=== PATIENT | female | born 2000 | race Caucasian/White ===

== ENCOUNTER 2022-05-25 22:26 | Inpatient (IN) ==
[2022-05-25] MEDS ORDERED: OXYTOCIN 30 UNITS/500 ML BAG IV PRN ×2 (23:09→23:42)
[2022-05-25] MEDS ORDERED: LACTATED RINGER'S 1,000 ML IV PRN (23:09)
--- NOTE | 2022-05-25 23:22 | History & Physical Report ---
Date of Service May 25, 2022 Assessment & Plan (1) SROM (spontaneous rupture of membranes): Plan: 22 y/o G1 at 37 4/7 wga presents with SROM VSS Fetus cat 1 SROM - bill spontaneously, manage expectantly. Discussed pit if indicated and pt amenable if needed GBS neg Epidural PRN Admission and Anticipated Discharge Date Admission Date: May 25, 2022 History of Present Illness Chief Complaint: LOF Primary Care Provider: Sven Obrien 22 y/o G1 at 37 4/7 wga presents w/ LOF. Had an episode where it felt like she peed herself around 930pm and just kept going, has continued leaking since then. Contractions began at that time too, denies VB. 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, but structurally Past [employer] Hx: G1 denies hx STIs never had a pap Allergies Allergy/AdvReac Type Severity Reaction Status Date / Time diphenhydramine AdvReac Intermediate makes her Verified 05/24/22 11:16 [From Benadryl] lungs tingle ibuprofen AdvReac Intermediate INTENSIFIES Verified 05/24/22 11:16 HEADACHES Home Medications Medication Instructions Recorded Confirmed Type prenat.vits,fredrick,jfq-kusn-sovab 1 tab PO QAM 11/12/21 05/25/22 History Patient History Medical History Migraine without aura Surgical History No pertinent past surgical history Family History Grandmother (Paternal) Pancreatic cancer Hypertension Unknown Afib Paternal great grandmother Unknown Acute leukemia Paternal Great Grandfather Denies family history of Ovarian cancer Prostate cancer Diabetes Heart disease Breast cancer Colorectal cancer Social History Smoking Status: Never smoker Second Hand Exposure: Yes; Hx Alcohol Use: No Hx Substance Use: No Preferred Language: Ukrainian Communication Ability: Effective Hearing Ability: Normal Field Identification Specialist Required: No Beliefs That Will Affect Care: None marital status: Single marital status details: RJ Katz (25) [phone] Current Living Situation: Parent Current Living Situation Comment: parents current occupational status: unemployed How many Children do You have: 0 Other Information That Helps Us Care for You: No Feels Safe at Home: Yes Safety Concerns: Feels Safe At This Time caffeine: Yes Dental Care, Regularly: Yes Physical Activity Frequency: 3-4 Times per Week Seatbelt Use: always Sunscreen Use: Yes Assistive Devices: Glasses Physical Exam Genitourinary: OB Exam Abdomen: + estimated weight (6-7) OB Exam Monitor Tracing: + external FHT monitor used, + external uterine monitor used (q5-6) and + category I (125/mod/+accel/-decel) Grossly ruptured and SVE 3- 4/100/0 by nursing Results & Data ([facility]) Vital Signs (Past 12 Hours) Vital Signs Temp Pulse Resp BP 05/25/22 22:49 98.2 F 93 H 18 117/73 05/25/22 22:43 98.2 F 93 H 18 117/73 Laboratory Results OB Labs: Blood Type O Positive 11/16/21 Antibody Screen NEGATIVE 11/16/21 Hemoglobin 11.8 g/dL (12.0-16.0) L 03/22/22 Hematocrit 35.5 % (37-47) L 03/22/22 Mean Corpuscular Volume 88.2 fL (80-100) 03/07/22 Platelet Count 206 K/uL (130-400) 03/07/22 Rubella IgG Antibody Non Immune (Immune) L 11/16/21 Rapid Plasma Reagin Nonreactive (Nonreactive) 11/16/21 Hepatitis B Surface Antigen Neg (Neg) 11/16/21 Hepatitis C Antibody Neg (Neg) 11/16/21 HIV (1&2) Ab and P24 Ag, 4th Gener Neg (Neg) 11/16/21 Glucose 1 Hour 50 gm Load 115 mg/dl (70-130) 03/22/22 OB Optional Labs: Chlamydia trachomatis RNA NOT DETECTED (NOT DETECTED) 11/16/21 Neisseria gonorrhoeae RNA NOT DETECTED (NOT DETECTED) 11/16/21 Labs Reviewed: Declines csf/sma-mln cfdna-low risk--mln declines msafp--mln GBS neg Diagnostic Findings post plac Coding Level of Care Code None Diagnoses SROM (spontaneous rupture of membranes)
[2022-05-25 23:39] LABS: Hematocrit (blood only) 36.9 % (34.1-44.9); Hemoglobin 12.8 g/dl (12.0-16.0); Mean Corpuscular Hemoglobin 30.3 pg (25.0-34.0); Mean Corpuscular Hgb Conc 34.7 g/dL (32.0-36.0); Mean Corpuscular Volume 87.4 fL (80.0-100.0); Mean Platelet Volume 10.5 fL (9.4-12.3); Platelet Count 183 K/uL (130-400); RDW Coefficient of Variation 13.2 % (11.5-14.5); RDW Standard Deviation 42.5 fL (36.4-46.3); Red Blood Count 4.22 M/uL (3.93-5.22); White Blood Count 11.84 K/ul (4.8-10.8)
[2022-05-26] MEDS ORDERED: SODIUM CHLORIDE 0.9% INJ 10 ML VIAL ONE (00:06)
[2022-05-26] MEDS ORDERED: fentaNYL citrate 100 MCG/2 ML VIAL ONE (00:06)
[2022-05-26] MEDS ORDERED: ePHEDrine sulfate 50 MG/ML AMP ONE (00:06)
[2022-05-26] MEDS ORDERED: LIDOCAINE 2%/EPINEPHRINE 1:200,000 20 ML SDV ONE (00:07)
[2022-05-26] MEDS ORDERED: BUPIVACAINE 0.25% 30 ML VIAL ONE (00:07)
[2022-05-26] MEDS ORDERED: fentaNYL 2MCG/ML ROPIVACAINE 1.25MG/ML 100 ML BAG EPI ONE (00:07)
[2022-05-26] MEDS ORDERED: NALOXONE HCL 1 MG in SODIUM CHLORIDE 0.9% 1000ML 1,000 ML IV PRN (00:45)
[2022-05-26] MEDS ORDERED: fentaNYL 2MCG/ML ROPIVACAINE 1.25MG/ML 100 ML BAG EPI PRN (00:45)
[2022-05-26] MEDS ORDERED: NALBUPHINE HCL INJ 10 MG/ML AMP IV PRN (00:45)
[2022-05-26] MEDS ORDERED: ONDANSETRON INJ 2 MG/ML 2 ML VIAL IV PRN (00:45)
[2022-05-26] MEDS ORDERED: diphenhydrAMINE 50 MG/ML VIAL IV PRN (00:45)
[2022-05-26] MEDS ORDERED: NALOXONE HCL 0.4 MG/1 ML VIAL/CARP IV PRN (00:45)
[2022-05-26] MEDS ORDERED: ePHEDrine sulfate 50 MG/ML AMP IV PRN (00:45)
--- NOTE | 2022-05-26 00:45 | Anesthesiology Consultation ---
Date of Service May 26, 2022 Assessment & Plan Chart Review Chart Review: Patient NOT seen in Pre Admission Testing and Acceptable Risk for Labor Epidural Consults Requested none ASA ASA2 Proposed Anesthesia Anesthesia Type: Labor Epidural Risk / Benefits Reviewed With: PT / POA / Parent / Guardian, Accepts Plan and Informed Consent Obtained History Height/Weight Height: 5 ft 7 in Weight: 69.853 kg Allergies Allergy/AdvReac Type Severity Reaction Status Date / Time diphenhydramine AdvReac Intermediate makes her Verified 05/24/22 11:16 [From Benadryl] lungs tingle ibuprofen AdvReac Intermediate INTENSIFIES Verified 05/24/22 11:16 HEADACHES Medications Home Medications Medication Instructions Recorded Confirmed Last Taken prenat.vits,fredrick,lux-ublj-oczwq 1 tab PO QAM 11/12/21 05/25/22 05/25/22 Active Medications Generic Name Dose Route Start Last Admin Trade Name Freq PRN Reason Stop Dose Admin Lactated Ringer's 1,000 mls @ 125 mls/hr 05/25/22 23:09 05/26/22 00:40 Lr IV 05/27/22 23:08 125 mls/hr .Q8H PRN Infusion L&D Protocol Protocol Past Medical History Medical History Migraine without aura Exercise / Class Metabolic Activity II 4-5 Yardwork/Stairs/Walk up hill Past Family History Family History Grandmother (Paternal) Pancreatic cancer Hypertension Unknown Afib Paternal great grandmother Unknown Acute leukemia Paternal Great Grandfather Denies family history of Ovarian cancer Prostate cancer Diabetes Heart disease Breast cancer Colorectal cancer Past Surgical History Surgical History No pertinent past surgical history Past Anesthesia History No Hx of Anesthesia Complications and No Family Hx of Anesthesia Complications History of PONV No Hx of PONV and No Hx of Motion Sickness Social History Smoking Status: Never smoker Hx Alcohol Use: No Hx Substance Use: No substance use type: does not use Physical Exam Vital Signs Last Vital Signs Temp 36.8 C 05/25/22 22:49 Pulse 102 H 05/26/22 00:42 Resp 18 05/25/22 22:49 BP 126/81 05/26/22 00:42 Pulse Ox 97 05/26/22 00:42 ENMT Mouth: no dentition abnormality Thyromental Distance: > or= 3.5 Finger Breadths Mallampati Class: II Neck normal visual inspection Respiratory normal respiratory effort Auscultation: lungs clear to auscultation bilaterally Cardiovascular Rate/Rhythm: regular rate and regular rhythm Psychiatric Orientation: alert Testing Laboratory Results 05/25/22 23:23
--- NOTE | 2022-05-26 03:12 | Delivery Summary ---
Vaginal Delivery Summary Date of Service May 26, 2022 Vaginal Delivery Summary [facility] PREOPERATIVE DIAGNOSIS: 1. Single intrauterine at 37 5/7 wga 2. SROM 3. Labor 4. Rubella nonimmune POSTOPERATIVE DIAGNOSIS: 1. Single intrauterine at 37 5/7 wga 2. SROM 3. Labor 4. Rubella nonimmune 5. Delivered PROCEDURE: 1. Normal spontaneous vaginal delivery. SURGEON: Gaby Washington MD ANESTHESIA: Epidural. ESTIMATED BLOOD LOSS: 200 mL FLUIDS: Continuous LR. URINE OUTPUT: None. COMPLICATIONS: None. CONDITION: Stable. INDICATIONS: 22 y/o G1 at 37 5/7 wga presented last evening with SROM. She was found to be 3cm on arrival. She received an epidural for pain control and progressed spontaneously to complete and desired to push. FINDINGS: A viable female infant, weight pending with Apgars of 8 and 9 at 1 and 5 minutes respectively. SPECIMEN: Cord blood OPERATIVE REPORT: The patient progressed to 10 cm, 100% effaced and +2 station, pushed over intact perineum with anesthesia to deliver a viable female infant, weight and Apgars as above. Head of delivered in APOLINAR position. No nuchal cord was present. Body and shoulders were delivered without difficulty. was delivered to maternal abdomen and nursing staff. Delayed cord clamping was performed for 60 seconds. Cord was clamped and cut. Cord blood was obtained. Placenta delivered spontaneously intact with 3-vessel cord. IV oxytocin and fundal massage were given for excellent hemostasis. Vagina, cervix, perineum, and placenta were inspected. A few hemostatic abrasions in the vagina, on the right labia and adjacent to clitoris were noted and not needed to be repaired. There was good hemostasis. Sponge and needle counts correct x2. No sponges were left behind. Mother and stable in immediate period. [facility] [place] Vaginal Delivery Codes: 63065 global code for the antepartum, delivery, and post- Delivery Type Details: [facility]
[2022-05-26] MEDS ORDERED: IBUPROFEN 600 MG TAB PO PRN (03:20)
[2022-05-26] MEDS ORDERED: HYDROCORTISONE ACETATE 25 MG SUPP PR PRN (03:20)
[2022-05-26] MEDS ORDERED: OXYTOCIN 30 UNITS/500 ML BAG IV PRN (03:20)
[2022-05-26] MEDS ORDERED: DIPHTHERIA/TETANUS/PERTUSSIS 0.5 ML SYR/VIAL IM ONE (03:20)
[2022-05-26] MEDS ORDERED: BENZOCAINE 20% AER SPR 82.5 GM CAN EXT PRN (03:20)
[2022-05-26] MEDS ORDERED: MEASLES, MUMPS & RUBELLA VIRUS VIAL SQ ONE (03:20)
[2022-05-26] MEDS: PRENATAL VITAMIN 1 TAB PO SCH (07:53)
[2022-05-26] MEDS: DOCUSATE SODIUM 100 MG CAP PO SCH ×2 (07:53→20:16)
--- NOTE | 2022-05-26 08:39 | Anesthesia Procedure Note ---
Date of Service May 26, 2022 Anesthesia Post Epidural Note Vital Signs Vital Signs: Temp Pulse Resp BP Pulse Ox O2 Del Method 97.7 F 73 18 118/66 98 05/26/22 05:20 05/26/22 05:20 05/26/22 05:20 05/26/22 05:20 05/26/22 05:20 05/26/22 05:20 Notes Mental Status: alert / awake / arousable and participated in evaluation Nausea / Vomiting: adequately controlled Pain: adequately controlled Airway Patency, RR, SpO2: stable & adequate BP & HR: stable & adequate Hydration State: stable & adequate Neuraxial Anesthesia: was administered and sensory block is resolving Anesthetic Complications: no major complications apparent and Pt Satisfied with anesthetic care Epidural: Removed without complications and With tip intact
[2022-05-26] MEDS: ACETAMINOPHEN 325 MG TAB PO PRN (20:16)
--- NOTE | 2022-05-27 07:11 | Obstetrical Progress Note ---
Date of Service May 27, 2022 Assessment & Plan (1) Encounter for care and examination after delivery: 22 yo PP1 from , doing well -Meeting all pp milestones -O+/rubella nonimmune/, mmr ordered -f/u 6 weeks for appt, desires d/c today and stable to do so Subjective Ambulation: ambulating normally Voiding: no voiding problems Passing Gas:: Yes Diet Tolerance:: regular diet Lochia:: Small Feeding Type:: bottle feeding (trying to pump) Pain well managed with medication, cannot take ibuprofen so just taking tylenol Review of Systems Denies fevers, chills, n/v, [place], CP, SOB Physical Exam Constitutional WD/WN, vitals as above no acute distress Respiratory normal respiratory effort, lungs clear to auscultation Cardiovascular RRR, no murmur, no edema Gastrointestinal (Abdomen) Percussion/Palpation: abdomen soft; abdomen nontender fundus firm 1cm below umbilicus and NT Musculoskeletal BLE symmetric, nonerythematous, nontender Results & Data ([facility]) Vital Signs (Past 12 Hours) Vital Signs Temp Pulse Resp BP Pulse Ox O2 Del Method 05/27/22 04:00 97.7 F 69 18 107/72 96 Room Air 05/27/22 00:10 97.7 F 80 16 98/63 L 96 Room Air 05/26/22 20:00 97.9 F 89 16 96/61 L 98 Room Air
[2022-05-27] MEDS: PRENATAL VITAMIN 1 TAB PO SCH (07:14)
[2022-05-27] MEDS: ACETAMINOPHEN 325 MG TAB PO PRN (07:14)
[2022-05-27] MEDS: DOCUSATE SODIUM 100 MG CAP PO SCH (07:14)
[2022-05-27] MEDS ORDERED: bisacodyL 5 MG TABEC PO SCH (20:00)
[2022-05-28] MEDS ORDERED: bisacodyL 10 MG SUPP PR PRN (03:20)
== END 2022-05-27 12:00 | disposition home or self-care (01) | DRG 807 ==
LOC: OPB 22:26 → 4S1 22:28 → 4E2 05-26 05:30

== ENCOUNTER 2022-06-08 19:06 | Observation (INO) ==
[2022-06-08] MEDS ORDERED: SODIUM CHLORIDE 0.9% 1000ML 1,000 ML IV ONE ×2 (19:46→20:13)
[2022-06-08 19:59] LABS: Basophils # (auto) 0.05 K/uL (0-0.2); Basophils % (auto) 0.3 %; Eosinophils # (auto) 0.04 K/uL (0-0.50); Eosinophils % (auto) 0.3 %; Hematocrit (blood only) 42.5 % (34.1-44.9); Hemoglobin 14.4 g/dl (12.0-16.0); Immature Granulocytes # (auto) 0.05 K/uL (0.00-0.02); Immature Granulocytes % (auto) 0.3 %; Lymphocytes % (auto) 11.3 %; Mean Corpuscular Hemoglobin 29.5 pg (25.0-34.0); Mean Corpuscular Hgb Conc 33.9 g/dL (32.0-36.0); Mean Corpuscular Volume 87.1 fL (80.0-100.0); Mean Platelet Volume 9.5 fL (9.4-12.3); Monocytes # (auto) 1.19 K/uL (0.24-0.82); Monocytes % (auto) 7.5 %; Neutrophils # (auto) 12.82 K/uL (1.4-6.5); Neutrophils % (auto) 80.3 %; Platelet Count 287 K/uL (130-400); RDW Coefficient of Variation 12.1 % (11.5-14.5); RDW Standard Deviation 38.9 fL (36.4-46.3); Red Blood Count 4.88 M/uL (3.93-5.22); White Blood Count 15.95 K/ul (4.8-10.8)
[2022-06-08] MEDS ORDERED: ACETAMINOPHEN 1000 MG/100 ML IV IV STA (20:07)
[2022-06-08] MEDS ORDERED: GENTAMICIN CONSULT ACTIVE PRN ×2 (20:11→21:13)
[2022-06-08] MEDS ORDERED: CLINDAMYCIN/D5W 900 MG/50 ML BAG IV ONE (20:11)
[2022-06-08] MEDS ORDERED: GENTAMICIN SULFATE 320 MG in DEXTROSE 5% 100 ML IV STA (20:11)
[2022-06-08 20:17] LABS: Albumin Globulin Ratio 1.4 (0.9-2); Albumin Level 3.8 gm/dl (3.4-5.0); BUN Creatinine Ratio 20.5 (10-20); Bilirubin,Total 0.6 mg/dl (0.2-1.0); Creatinine Clr Calc Pharmacy 123.6 ml/min; Est GFR (African American) 137.4 ml/min; Est GFR (Non-African American) 118.6 ml/min; Globulin 2.7 gm/dl (2.5-4.0); Potassium 3.5 mmol/L (3.5-5.1); Total Protein 6.5 gm/dl (6.0-8.3)
--- NOTE | 2022-06-08 20:29 | Emergency Department Note ---
History of Present Illness General Chief complaint: Headache Stated complaint: ACHES, CHILLS, HEADACHE Time Seen by Provider: 06/08/22 19:45 History of Present Illness Maximum Pain Intensity: 9 22-year-old female presents to the ED with a chief complaint of body aches, chills and a headache. She states that her symptoms started about an hour prior to arrival. Denies a cough or sore throat. No sick contacts. Status post spontaneous vaginal delivery about 2 weeks ago. Complains of some suprapubic and lower abdominal quadrant tenderness. She continues having some vaginal bleeding that is similar to a period. She also has an occasional cramps. She did report some burning with urination as well. She thinks that is from using a pad for her bleeding. She has not taken any medication for her symptoms. Home Medications Medication Instructions Recorded Confirmed Type prenat.vits,fredrick,[id number]-[id number]-rpaff 1 tab PO QAM 11/12/21 06/08/22 History acetaminophen 325 mg tablet 650 mg PO Q6H PRN Pain 06/08/22 06/08/22 History sertraline 25 mg tablet 25 mg PO DAILY 06/08/22 06/08/22 History Allergies Allergy/AdvReac Type Severity Reaction Status Date / Time diphenhydramine AdvReac Intermediate makes her Verified 06/08/22 20:28 [From Benadryl] lungs tingle ibuprofen AdvReac Intermediate INTENSIFIES Verified 06/08/22 20:28 HEADACHES Past Med/Surg History Medical History Migraine without aura Surgical History No pertinent past surgical history Family History Grandmother (Paternal) Pancreatic cancer Hypertension Unknown Afib Paternal great grandmother Unknown Acute leukemia Paternal Great Grandfather Denies family history of Ovarian cancer Prostate cancer Diabetes Heart disease Breast cancer Colorectal cancer Social History Smoking Status: Never smoker Second Hand Exposure: Yes; Hx Alcohol Use: No Hx Substance Use: No Preferred Language: French Communication Ability: Effective Hearing Ability: Normal Air Traffic Control Specialist Required: No Beliefs That Will Affect Care: None marital status: Single marital status details: RJ Katz (25) [phone] Current Living Situation: Parent Current Living Situation Comment: parents current occupational status: unemployed How many Children do You have: 0 Feels Safe at Home: Yes caffeine: Yes Dental Care, Regularly: Yes Physical Activity Frequency: 3-4 Times per Week Seatbelt Use: always Sunscreen Use: Yes Assistive Devices: Glasses Review of Systems A total of 10 systems reviewed and were otherwise negative Physical Exam Vital Signs Vital Signs - 24 hr 06/08/22 19:11 06/08/22 20:37 06/08/22 21:20 Temperature 38.9 C H 38.8 C H Temperature Source Temporal Artery Scan Oral Pulse Rate 138 H Pulse Rate [Apical] 104 H 86 Respiratory Rate 20 23 24 Respiratory Effort / Characteristics Non-Labored Non-Labored Respiratory Depth Normal Normal Respiratory Pattern Regular Regular Blood Pressure 98/59 L Blood Pressure [Right Arm] 104/63 Blood Pressure Mean 72 Blood Pressure Mean [Right Arm] 76 Blood Pressure Position [Right Arm] Lying Pulse Oximetry 97 96 96 Oxygen Delivery Method Room Air Room Air Room Air Sepsis Recent Fever Within 48 Hours Yes Sepsis New/Unexplained Change in Mental Status N/A Sepsis Action Taken by Nursing No Action Required 06/08/22 21:27 Temperature 37.4 C Temperature Source Oral Pulse Rate Pulse Rate [Apical] 83 Respiratory Rate 20 Respiratory Effort / Characteristics Respiratory Depth Respiratory Pattern Blood Pressure Blood Pressure [Right Arm] 106/62 Blood Pressure Mean Blood Pressure Mean [Right Arm] 76 Blood Pressure Position [Right Arm] Pulse Oximetry 97 Oxygen Delivery Method Room Air Sepsis Recent Fever Within 48 Hours Sepsis New/Unexplained Change in Mental Status Sepsis Action Taken by Nursing CONSTITUTIONAL/VITAL SIGNS: Reviewed / noted above. GENERAL: Non-toxic in appearance. INTEGUMENTARY: Warm, dry, and [place]. HEAD: Normocephalic. EYES: without scleral icterus or trauma. ENT/OROPHARYNX: clear and moist. LYMPHADENOPATHY/NECK: Is supple without lymphadenopathy or meningismus. RESPIRATORY: Clear to auscultation bilaterally. No increased work of breathing. CARDIOVASCULAR: Tachycardic rate and regular rhythm. GI/ABDOMEN: Soft and significantly tender in the suprapubic area and lower quadrants. No organomegaly or pulsatile mass. EXTREMITIES: Warm and well perfused. BACK: Mild left-sided CVA tenderness. NEUROLOGICAL: Intact without focal deficits. PSYCHIATRIC: normal affect. MUSCULOSKELETAL: Normally developed with good muscle tone. TRIAGE NURSING DOCUMENTATION REVIEWED. Course Administered Medications Discontinued Medications Acetaminophen (Acetaminophen 1000 Mg/100 Ml Iv) 1,000 mg IV NOW STA Stop: 06/08/22 20:08 Last Admin: 06/08/22 20:31 Dose: 1,000 mg Documented By: HILARIA Sodium Chloride (Nss 1000ml) 1,000 mls @ 999 mls/hr IV .Q1H1M ONE Stop: 06/08/22 20:46 Last Infusion: 06/08/22 21:54 Dose: 0 mls/hr Documented By: Admin: 06/08/22 20:31 Dose: 999 mls/hr Documented By: HILARIA Clindamycin Phosphate (Cleocin/D5w) 900 mg in 50 mls @ 100 mls/hr IV NOW ONE Stop: 06/08/22 20:40 Last Admin: 06/08/22 21:51 Dose: 100 mls/hr Documented By: CK Ioversol (Optiray 300 100ml) 93 ml IV ONCE ONE Stop: 06/08/22 21:03 Last Admin: 06/08/22 21:02 Dose: 93 ml Documented By: MANUEL Medical Decision Making Differential Diagnosis Differential includes viral illness, influenza, meningitis, pneumonia, sin usitis, UTI, pyelonephritis, endometritis, appendicitis, diverticulitis, other. Medical Records Attestation: I reviewed the patient's medical records. Home Medications Current Medication List: was personally reviewed by me Laboratory Data Attestation: I reviewed the patient's lab results. Result diagrams: 06/08/22 19:40 06/08/22 19:40 Lab Results 06/08/22 06/08/22 06/08/22 Range/Units 19:35 19:40 19:40 WBC 15.95 H (4.8-10.8) K/ul RBC 4.88 (3.93-5.22) M/uL Hgb 14.4 (12.0-16.0) g/dl Hct 42.5 (34.1-44.9) % MCV 87.1 (80.0-100.0) fL MCH 29.5 (25.0-34.0) pg MCHC 33.9 (32.0-36.0) g/dL RDW Std Deviation 38.9 (36.4-46.3) fL RDW Coeff of Tomás 12.1 (11.5-14.5) % Plt Count 287 (130-400) K/uL MPV 9.5 (9.4-12.3) fL Immature Gran % (Auto) 0.3 % Neut % (Auto) 80.3 % Lymph % (Auto) 11.3 % Carroll % (Auto) 7.5 % Eos % (Auto) 0.3 % Baso % (Auto) 0.3 % Neut # (Auto) 12.82 H (1.4-6.5) K/uL Lymph # (Auto) 1.80 (1.2-3.4) K/uL [place] # (Auto) 1.19 H (0.24-0.82) K/uL Eos # (Auto) 0.04 (0-0.50) K/uL Baso # (Auto) 0.05 (0-0.2) K/uL Immature Gran # (Auto) 0.05 H (0.00-0.02) K/uL Sodium 136 (136-145) mmol/L Potassium 3.5 (3.5-5.1) mmol/L Chloride 105 (98-107) mmol/L Carbon Dioxide 23 (21-32) mmol/L Anion Gap 8 (3-11) BUN 15 (6-23) mg/dl Creatinine 0.73 (0.6-1.2) mg/dl Est Cr Clr Drug Dosing 123.6 ml/min Est GFR ( Amer) 137.4 ml/min Est GFR (Non-Af Amer) 118.6 ml/min BUN/Creatinine Ratio 20.5 H (10-20) Glucose 101 H (70-99(Fasting)) mg/dl Lactate (0.4-2.0) mmol/L Calcium 9.0 (8.5-10.1) mg/dl Total Bilirubin 0.6 (0.2-1.0) mg/dl AST 15 (13-39) U/L ALT 17 (7-52) U/L Alkaline Phosphatase 108 H (34-104) U/L Total Protein 6.5 (6.0-8.3) gm/dl Albumin 3.8 (3.4-5.0) gm/dl Globulin 2.7 (2.5-4.0) gm/dl Albumin/Globulin Ratio 1.4 (0.9-2) Procalcitonin (0-0.5) ng/ml Urine Color Urine Appearance (Clear) Urine pH (4.5-7.5) Ur Specific [place] (1.000-1.030) Urine Protein (Negative) Urine Glucose (UA) (Negative) Urine Ketones (Negative) Urine Blood (Negative) Urine Nitrite (Negative) Urine Bilirubin (Negative) Urine Urobilinogen (Negative) Ur Leukocyte Esterase (Negative) Urine WBC (Auto) (0-5) /hpf Urine RBC (Auto) (0-4) /hpf U Hyaline Cast (Auto) (0-5) /lpf U Epithel Cells (Auto) (0-5) /lpf Urine Bacteria (Auto) (Negative) SARS-CoV-2 (PCR) NEGATIVE (Negative) Influenza Type A (PCR) Negative (Neg) Influenza Type B (PCR) Negative (Neg) RSV (RT-PCR) Negative (Neg) 06/08/22 06/08/22 06/08/22 Range/Units 19:40 20:25 20:30 WBC (4.8-10.8) K/ul RBC (3.93-5.22) M/uL Hgb (12.0-16.0) g/dl Hct (34.1-44.9) % MCV (80.0-100.0) fL MCH (25.0-34.0) pg MCHC (32.0-36.0) g/dL RDW Std Deviation (36.4-46.3) fL RDW Coeff of Tomás (11.5-14.5) % Plt Count (130-400) K/uL MPV (9.4-12.3) fL Immature Gran % (Auto) % Neut % (Auto) % Lymph % (Auto) % [place] % (Auto) % Eos % (Auto) % Baso % (Auto) % Neut # (Auto) (1.4-6.5) K/uL Lymph # (Auto) (1.2-3.4) K/uL [place] # (Auto) (0.24-0.82) K/uL Eos # (Auto) (0-0.50) K/uL Baso # (Auto) (0-0.2) K/uL Immature Gran # (Auto) (0.00-0.02) K/uL Sodium (136-145) mmol/L Potassium (3.5-5.1) mmol/L Chloride (98-107) mmol/L Carbon Dioxide (21-32) mmol/L Anion Gap (3-11) BUN (6-23) mg/dl Creatinine (0.6-1.2) mg/dl Est Cr Clr Drug Dosing ml/min Est GFR ( Amer) ml/min Est GFR (Non-Af Amer) ml/min BUN/Creatinine Ratio (10-20) Glucose (70-99(Fasting)) mg/dl Lactate 0.5 (0.4-2.0) mmol/L Calcium (8.5-10.1) mg/dl Total Bilirubin (0.2-1.0) mg/dl AST (13-39) U/L ALT (7-52) U/L Alkaline Phosphatase (34-104) U/L Total Protein (6.0-8.3) gm/dl Albumin (3.4-5.0) gm/dl Globulin (2.5-4.0) gm/dl Albumin/Globulin Ratio (0.9-2) Procalcitonin < 0.05 (0-0.5) ng/ml Urine Color Yellow Urine Appearance Clear (Clear) Urine pH 7.0 (4.5-7.5) Ur Specific [place] 1.018 (1.000-1.030) Urine Protein Negative (Negative) Urine Glucose (UA) Negative (Negative) Urine Ketones Negative (Negative) Urine Blood Negative (Negative) Urine Nitrite Negative (Negative) Urine Bilirubin Negative (Negative) Urine Urobilinogen Negative (Negative) Ur Leukocyte Esterase 3+ H (Negative) Urine WBC (Auto) 10-30 H (0-5) /hpf Urine RBC (Auto) 0-4 (0-4) /hpf U Hyaline Cast (Auto) 1-5 (0-5) /lpf U Epithel Cells (Auto) 10-20 H (0-5) /lpf Urine Bacteria (Auto) Negative (Negative) SARS-CoV-2 (PCR) (Negative) Influenza Type A (PCR) (Neg) Influenza Type B (PCR) (Neg) RSV (RT-PCR) (Neg) Imaging Data My Impression: Chest x-ray: Per my interpretation there is no acute disease. No pneumothorax or pneumonia. ECG Data Attestation: I personally reviewed and interpreted this ECG as follows: Additional Comments: Twelve-lead EKG: Per my interpretation shows normal sinus rhythm at a rate of 81. No ST elevation. No PVCs. Normal QTC MDM Narrative 22-year-old female presents with body aches and chills as well as a headache and abdominal pain in the setting of postdelivery 2 weeks ago. Exam reveals tenderness in the suprapubic area. She is febrile and tachycardic. Her blood pressure was 98/59. Symptoms are concerning for endometritis. Her white blood cell count was elevated at 15.95. Chemistry panel was unremarkable. Urine did not show infection. COVID test was negative. EKG shows a normal sinus rhythm. CT scan has been performed. Results are pending. Clinically I feel the patient has endometritis. She was treated with empiric antibiotics in the form of clindamycin and gentamicin IV. She was also given some IV Tylenol and some IV fluids. Her tachycardia improved. Her fever resolved. She was seen by Dr. Josue for further evaluation and care. Impression & Plan endometritis Discharge Plan Visit Data Chief Complaint: Headache Stated Complaint: ACHES, CHILLS, HEADACHE ED Provider: Anton Kelly Discharge Problem: endometritis Patient Disposition: Being Evaluated by Surgeon Discharge Instructions Interventions: ED Discharge Assessment Last Done: 06/08/22 22:09 Forms Stand Alone Forms: My [facility] Prescriptions Prescriptions: No Action prenat.vits,fredrick,nve-eyeq-onygb Tablet 1 tab PO QAM sertraline 25 mg tablet 25 mg PO DAILY acetaminophen 325 mg tablet 650 mg PO Q6H PRN (Reason: Pain) Referrals Referrals: Sven Obrien [email or web address] [Primary Care Provider] -
[2022-06-08 20:41] LABS: Influenza A virus by PCR Negative (Neg); Influenza B virus by PCR Negative (Neg); RSV by PCR Negative (Neg); SARS CoV2 RNA(COVID-19) InHosp NEGATIVE (Negative)
[2022-06-08 20:59] LABS: Appearance Urine Clear (Clear); Bacteria Urine Automated Negative (Negative); Bilirubin Urine Negative (Negative); Blood Urine Negative (Negative); Color Urine Yellow; Glucose Urine UA Negative (Negative); Ketones Urine Negative (Negative); Leukocyte Esterase Urine 3+ (Negative); Nitrite Urine Negative (Negative); Protein Urine Negative (Negative); RBC Urine Automated 0-4 /hpf (0-4); Specific Gravity Urine 1.018 (1.000-1.030); Urobilinogen Urine Negative (Negative)
[2022-06-08] MEDS ORDERED: OPTIRAY 300 100mL IV ONE (21:02)
[2022-06-08] MEDS ORDERED: ONDANSETRON INJ 2 MG/ML 2 ML VIAL IV PRN (21:13)
[2022-06-08] MEDS ORDERED: ACETAMINOPHEN 325 MG TAB PO PRN (21:13)
[2022-06-08] MEDS ORDERED: IBUPROFEN 600 MG TAB PO PRN (21:13)
--- NOTE | 2022-06-08 21:19 | History & Physical Report ---
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 COVID and other respiratory virus testing is negative. Given tachycardia, very elevated temperature and mildly low blood pressure, do not think outpatient oral therapy is appropriate at this time and think she needs inpatient monitoring of her situation and IV therapy. Blood culture and urine culture pending. Plan clinda/gent as was GBS negative. If symptoms do not improve or continued fever, would plan to add ampicillin. await results of CT scan. Explained the situation to the patient and her significant other who express understanding. Plan IV thearpy until at least 24 hours afebrile and then will transition to oral therapy for a continued 10-14 days. History of Present Illness Chief Complaint: fever and feeling poorly Primary Care Provider: Sven Obrien Patient is a 22yowf who presents to the Ed today for feeling poorly and fever. Patient was in her usual state of health until abouty 6pm this evening w hen she started experiencing fever and chills , felt really poorly. Took temp and it was 101. They presented to the ED for this. She has not noted a significant change in her bleeding. She denies n/v. she notes she has external irritation with voiding, but nothing deep or internal. She denies abdominal of pelvic pain. She does not note a foul smelling d/c. Patient is breast and bottle feeding. She notes her breasts are really engorged currently, but denies redness of the breasts. there are no sick contacts at home. History significant for on 05/26 at 3am. Was admitted on 05/25 at 23:19 with srom (just prior to arrival) and 3cm and progressed spontaneously in labor. Delivery and in hospital were uncomplicated. course was uncomplicated. she was GBS negative. she presented to the ED on PPD 6 for increased bleeding. She was afebrile, her wbc was 9.2. US showed a postgravid uterus. Endometrium was 1.2cm with minimal complex fluid, it was not distended by blood, clot and no POCS were suspected. She was reassured and sent home. Her temp on arrival was 38.9, repeat 38.8, pulse on admission 138 but now 86. INitial BP pressure a little on the low side with first bp 98/59 and repeat 104/63 and then 106/62. CXR appears wnl per my review--reading pending. CT scan pending. blood cultures pending. UA shows 10-30 wbc, +LE, bacteria negative. 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 Allergies Allergy/AdvReac Type Severity Reaction Status Date / Time diphenhydramine AdvReac Intermediate makes her Verified 06/08/22 20:28 [From Benadryl] lungs tingle ibuprofen AdvReac Intermediate INTENSIFIES Verified 06/08/22 20:28 HEADACHES Home Medications Medication Instructions Recorded Confirmed Type prenat.vits,fredrick,[id number] 1 tab PO QAM 11/12/21 06/08/22 History acetaminophen 325 mg tablet 650 mg PO Q6H PRN Pain 06/08/22 06/08/22 History sertraline 25 mg tablet 25 mg PO DAILY 06/08/22 06/08/22 History Patient History Medical History Migraine without aura Surgical History No pertinent past surgical history Family History Grandmother (Paternal) Pancreatic cancer Hypertension Unknown Afib Paternal great grandmother Unknown Acute leukemia Paternal Great Grandfather Denies family history of Ovarian cancer Prostate cancer Diabetes Heart disease Breast cancer Colorectal cancer Social History Smoking Status: Never smoker Second Hand Exposure: Yes; Hx Alcohol Use: No Hx Substance Use: No Preferred Language: [place]dean Communication Ability: Effective Hearing Ability: Normal Machine Grainer Required: No Beliefs That Will Affect Care: None marital status: Single marital status details: RJ Katz (25) [phone] Current Living Situation: Parent Current Living Situation Comment: parents current occupational status: unemployed How many Children do You have: 0 Feels Safe at Home: Yes caffeine: Yes Dental Care, Regularly: Yes Physical Activity Frequency: 3-4 Times per Week Seatbelt Use: always Sunscreen Use: Yes Assistive Devices: Glasses OB History see hpi Physical Exam Constitutional: WD/WN, vitals as above Neck: trachea midline, no thyromegaly Respiratory: normal respiratory effort, lungs clear to auscultation Cardiovascular: RRR, no murmur, no edema Extremities: no calf tenderness and no edema Gastrointestinal (Abdomen): soft, nd, tender to palpation of the pelvis and lower abdomen. no rebound Psychiatric: A+Ox3, euthymic affect Results & Data ([facility]) Vital Signs (Past 12 Hours) Vital Signs Temp Pulse Pulse Resp BP BP Pulse Ox 06/08/22 20:37 38.8 C H 104 H 23 104/63 96 06/08/22 19:11 38.9 C H 138 H 20 98/59 L 97 O2 Del Method 06/08/22 20:37 Room Air 06/08/22 19:11 Room Air Code Status & VTE Plan VTE Prophylaxis Plan VTE Prophylaxis will be ordered: No Coding Level of Care Code 00043 Initial Inpt Care Lvl 2 Diagnoses Vaginal delivery O80 endometritis O86.12
[2022-06-08] MEDS: LACTATED RINGER'S 1,000 ML IV SCH (23:40)
[2022-06-09] MEDS: CLINDAMYCIN/D5W 900 MG/50 ML BAG IV SCH ×3 (06:05→21:38)
--- NOTE | 2022-06-09 07:15 | CT Scan Report ---
ABDOMEN AND PELVIS CT WITH IV CONTRAST CT DOSE: 297.26 mGy.cm HISTORY: PROBABLE POST ENDOMETRITIS, LOWER ABD PAIN TECHNIQUE: Multiaxial CT images of the abdomen and pelvis were performed following the use of intrave nous contrast. A dose lowering technique was utilized adhering to the principles of ALARA. COMPARISON STUDY: None. FINDINGS: The lung bases are clear. No pneumoperitoneum. No pneumatosis. No fractures within the visu alized osseous structures. The liver, gallbladder, pancreas, spleen, and adrenal glands are unremarka ble. The main portal vein is patent. No retroperitoneal lymphadenopathy. Normal caliber abdominal aor ta. A 1 cm cyst within the upper pole of the left kidney. There is a punctate stone within the left k idney. No ureteral stones. No hydronephrosis. Mild bladder wall thickening. The uterus is mildly enla rged and heterogeneous. The endometrium measures up to 1.2 cm in thickness. Trace pelvic free fluid. This is likely physiologic. Small umbilical hernia containing fat and a knuckle of the colon. However , no bowel wall thickening or obstruction. Normal appendix. IMPRESSION: 1. Mild bladder wall thickening. This may represent a cystitis. Recommend correlation with urinalysis . 2. Mildly enlarged and heterogeneous uterus with a normal thickness endometrium for the patient's age . This likely represents the patient's history of a recent . 3. Trace pelvic free fluid which is likely physiologic. 4. No bowel wall thickening or obstruction. 5. Normal appendix. 6. Left-sided nephrolithiasis. No hydronephrosis. ACT 112: Negative or not required by law. Electronically signed by: Jerel Gonsalez M.D. 06/09/2022 7:13 AM
--- NOTE | 2022-06-09 07:21 | Electrocardiogram Report ---
Test Reason : Blood Pressure : / mmHG Vent. Rate : 081 BPM Atrial Rate : 081 BPM P-R Int : 156 ms QRS Dur : 090 ms QT Int : 368 ms P-R-T Axes : 052 113 038 degrees QTc Int : 427 ms Normal sinus rhythm Right axis deviation Incomplete right bundle branch block Low voltage QRS Abnormal ECG When compared with ECG of 08-JUN-2022 19:34, (unconfirmed) Vent. rate has decreased BY 40 BPM Confirmed by Anmol Calloway ([id number]) on 06/09/2022 7:21:32 AM Referred By: REFERRED SELF Confirmed By:Charly Calloway
--- NOTE | 2022-06-09 07:24 | Electrocardiogram Report ---
Test Reason : Blood Pressure : / mmHG Vent. Rate : 121 BPM Atrial Rate : 121 BPM P-R Int : 164 ms QRS Dur : 076 ms QT Int : 300 ms P-R-T Axes : 078 113 057 degrees QTc Int : 426 ms Sinus tachycardia Possible Left atrial enlargement Right axis deviation Low voltage QRS Abnormal ECG When compared with ECG of 07-MAR-2022 13:02, T wave inversion no longer evident in Inferior leads Confirmed by Anmol Calloway ([id number]) on 06/09/2022 7:23:28 AM Referred By: REFERRED SELF Confirmed By:Charly Calloway
--- NOTE | 2022-06-09 07:52 | XRay Report ---
XR chest 1V portable HISTORY: Fever COMPARISON: Chest 06/01/2022. FINDINGS: The lungs are clear. Cardiac silhouette is normal in size. No pleural effusions. No pneumot horax. IMPRESSION: No acute process. ACT 112: Negative or not required by law. Electronically signed by: Jerel Gonsalez M.D. 06/09/2022 7:51 AM
[2022-06-09 07:56] LABS: Basophils # (auto) 0.04 K/uL (0-0.2); Basophils % (auto) 0.3 %; Eosinophils # (auto) 0.14 K/uL (0-0.50); Eosinophils % (auto) 1.1 %; Hemoglobin 13.6 g/dl (12.0-16.0); Immature Granulocytes # (auto) 0.03 K/uL (0.00-0.02); Immature Granulocytes % (auto) 0.2 %; Lymphocytes % (auto) 16.1 %; Mean Corpuscular Hemoglobin 29.8 pg (25.0-34.0); Mean Corpuscular Volume 87.7 fL (80.0-100.0); Mean Platelet Volume 9.6 fL (9.4-12.3); Monocytes % (auto) 7.7 %; Neutrophils # (auto) 9.71 K/uL (1.4-6.5); Neutrophils % (auto) 74.6 %; Platelet Count 234 K/uL (130-400); RDW Coefficient of Variation 12.3 % (11.5-14.5); RDW Standard Deviation 39.8 fL (36.4-46.3); Red Blood Count 4.56 M/uL (3.93-5.22); White Blood Count 13.02 K/ul (4.8-10.8)
[2022-06-09] MEDS: LACTATED RINGER'S 1,000 ML IV SCH (08:07)
[2022-06-09 08:17] LABS: Albumin Globulin Ratio 1.4 (0.9-2); Albumin Level 3.3 gm/dl (3.4-5.0); BUN Creatinine Ratio 10.7 (10-20); Bilirubin,Total 0.8 mg/dl (0.2-1.0); Calcium 8.3 mg/dl (8.5-10.1); Creatinine Clr Calc Pharmacy 121.3 ml/min; Est GFR (Non-African American) 114.7 ml/min; Globulin 2.4 gm/dl (2.5-4.0); Potassium 3.6 mmol/L (3.5-5.1); Total Protein 5.7 gm/dl (6.0-8.3)
--- NOTE | 2022-06-09 08:25 | Gynecologic Progress Note ---
Date of Service June 09, 2022 Assessment & Plan (1) endometritis: Plan: Doing better this am. Last temp was 38.8 at 9pm last night. Has been afebrile since being on the floor. Feeling better and exam improved. WBC down today from 15 to 13K. Continue IV antibiotics until at least 24 hours afebrile. Admission and Anticipated Discharge Date Admission Date: June 08, 2022 Subjective Patient notes she is feeling better this am, just tired. Notes tolerating regular diet. Denies pain at this time. NO issues with voiding. Physical Exam Constitutional: WD/WN, vitals as above Respiratory: normal respiratory effort, lungs clear to auscultation Cardiovascular: RRR, no murmur, no edema Extremities: no calf tenderness and no edema Gastrointestinal (Abdomen): soft, nd some mild tenderness to palpation of the lower abdomen pelvis (improved from yesterday) Psychiatric: A+Ox3, euthymic affect Results & Data ([facility]) Vital Signs (Past 12 Hours) Vital Signs Temp Pulse Pulse Resp BP BP Pulse Ox 06/09/22 03:45 36.7 C 54 L 16 100/57 L 97 06/08/22 22:45 06/08/22 22:45 36.9 C 70 18 99/55 L 97 06/08/22 21:27 37.4 C 83 20 106/62 97 06/08/22 21:20 86 24 96 06/08/22 20:37 38.8 C H 104 H 23 104/63 96 O2 Del Method 06/09/22 03:45 Room Air 06/08/22 22:45 Room Air 06/08/22 22:45 Room Air 06/08/22 21:27 Room Air 06/08/22 21:20 Room Air 06/08/22 20:37 Room Air PG Care Time/CCT Total # of Minutes Spent Total Time Spent with Patient: Total time spent is greater than 50% in coordination of care (as documented) at patient's floor/unit and/or counseling patient: Coding Level of Care Code 51701 Subseq Hosp Care Lvl 1 Diagnoses endometritis O86.12
--- NOTE | 2022-06-09 09:34 | Pharmacy Report ---
Pharmacy PK ABX Note - Date of Service June 09, 2022 - Assessment and Plan Assessment * 22 year old F receiving gentamicin and clindamycin for treatment of post- endometritis, which is appropriate given negative Group B Strep screen on 05/17. * WBC trending down, afebrile x12 hours, and patient improving per DIAL PRINTER progress note today * CrCL 121 mL/min Gentamicin * 5 mg/kg IV q24h dose based on *actual* body weight for post- indication (appropriate to use extended interval given CrCL >60 mL/min) * Gentamicin levels do not need to be monitored in patients receiving gentamicin for this indication for less than 72 hours as long as they have normal renal function * Will order a trough for tomorrow night, to be assessed on 06/11, which will be ~ 72 hours of therapy * Target trough < 1 mcg/mL * Random level today of 1.82 not needed for this indication, but also suggests q24h interval is appropriate if applied to the [facility] nomogram Plan * Gentamicin 320 mg IV q24h * Trough 06/10 @ 2130 Pharmacy will continue to follow and will adjust dose/frequency as necessary. Thank you. Pharmacy has transitioned to AUC monitoring for vancomycin. AUC/ERIN is the preferred PK/PD target and is associated with decreased risk of nephrotoxicity c ompared to traditional trough targets.
[2022-06-09] MEDS ORDERED: GENTAMICIN SULFATE 320 MG in DEXTROSE 5% 100 ML IV SCH (22:00)
[2022-06-10] MEDS: CLINDAMYCIN/D5W 900 MG/50 ML BAG IV SCH (06:00)
[2022-06-10] MEDS ORDERED: AMOXICILLIN/CLAVULANATE 875 MG TAB PO SCH (08:00)
--- NOTE | 2022-06-10 08:27 | Gynecologic Progress Note ---
Date of Service June 10, 2022 Assessment & Plan (1) endometritis: Plan: Last fever reported on 06/08 @ 20:37. Has been afebrile since. She is feeling better and not having issues. Switch IV ab of clindamycin and gentamicin to PO Augmentin. If patient is able to tolerate medication and continues to be afebrile can D/C this afternoon. Admission and Anticipated Discharge Date Admission Date: June 08, 2022 Supervising Physician Co-Signing Physician Notes Resident Physician Supervision Note: I interviewed and examined the patient. Discussed with Dr. Sandhu and agree with findings and plan as documented in the note. Any exceptions or clarifications are listed here: Patient clinically much improved. Afebrile x >24 hours. PLan to transition to po antibiotics and if remains afebrile, plan d/c after dinner. she is agreeable. Antibiotics to complete [address] scan negative. All cultures preliminarily negative. Exam shows nontender abdomen. Documented By: Alisha Josue MD, FACOG Subjective Patient seen bedside this AM without any complaints. She is tolerating a regular diet. Denies any pain. No issues with voiding. She has been afebrile for over 24 hours. Review of Systems Review of Systems: Constitutional: denies fever, chills, fatigue HEENT: denies congestion, sore throat CV: denies chest pain, palpitations Resp: denies shortness of breath, cough GI: denies abdominal pain, nausea, vomiting, constipation, diarrhea : denies pain with urination, change in urinary frequency Neuro: denies new numbness, tingling, weakness Physical Exam Constitutional: WD/WN, vitals as above Eyes: PERRL, conjunctivae normal, anicteric sclerae Respiratory: normal respiratory effort, lungs clear to auscultation Cardiovascular: RRR, no murmur, no edema Gastrointestinal (Abdomen): normal bowel sounds, soft, nontender, no hepatosplenomegaly Musculoskeletal: no cyanosis or clubbing, extremities motor strength 5/5 Skin: no rashes, warm and dry Psychiatric: A+Ox3, euthymic affect Results & Data ([facility]) Vital Signs (Past 12 Hours) Vital Signs Temp Pulse Resp BP Pulse Ox O2 Del Method 06/10/22 05:59 36.8 C 52 L 16 100/68 97 Room Air 06/09/22 23:37 36.6 C 62 16 106/54 L 97 Room Air Resident Activity Tracking Resident Involvement: Resident Care Provided Care Provided: OB Delivery
[2022-06-10] MEDS ORDERED: GENTAMICIN TROUGH ONE (21:30)
--- NOTE | 2022-06-11 18:46 | Discharge Summary (DS) ---
DATE OF ADMISSION: 06/08/2022. DATE OF DISCHARGE: 06/10/2022. ADMITTING DIAGNOSIS: Presumed endometritis. DISCHARGE DIAGNOSIS: Presumed endometritis. PROCEDURE: IV antibiotics. HISTORY: Patient is a 22-year-old white female, G1, P1-0-0-1 who presented to the ED on Friday fee ling poorly with fever. She was in her usual state of health until about 6 p.m. In the evening when she started experiencing fever and chills and felt really poorly. She took her temperature and it w as 101. She presented to the ED. She had not noted a significant change in her bleeding. She denies nausea or vomiting. She notes that she has some external irritation with voiding, but nothing deepe r internal. She denies abdominal or pelvic pain. She does not note a foul smelling discharge. She i s breast and bottle feeding. She notes her breasts are very engorged currently, but denies redness o f the breast. There are no sick contacts at home. Her history significant for on 05/26/2022 at 3:00 a.m. was admitted 05/26/2022 at 2319 with ____ just prior to arrival and was 3 cm. She progres sed spontaneously in labor. Her delivery and in the hospital were uncomplicated. Her pre gnancy was uncomplicated. She was GBS negative. She presented to the ED on day 6 for increased bleeding. She was afebrile. Her white blo od cell count was 9.2. Ultrasound showed a gravid uterus. Endometrium was 1.2 cm with minimal compl ex fluid. It was not distended by blood clot and no products of conception were specified. She was reassured and sent home. Her temperature on arrival was 38.9 with a repeat of 38.8, pulse on admissi on was 138, but now 96. Initial blood pressure was a little on the low side at 98/59, but repeat was 104/63. Chest x-ray appears normal per review. CT scan was essentially negative. UA shows 10-30 wh ite blood cells, positive leukocyte esterase and bacteria negative. Lactate is normal at 0.5, BUN an d creatinine were normal. For the rest of the patient's history see her history and physical. ASSESSMENT: This is a patient who is 2 weeks , which I suspect has a endometrit is. COVID and respiratory virus testing were negative. Given the tachycardia and very elevated tempe rature, mildly low blood pressure, did not think outpatient oral therapy was appropriate and that she needed further monitoring and IV antibiotics. The patient was admitted. She received IV gentamicin and clindamycin. She very quickly defervesced and her clinical exam improved significantly. She was quite tender on admission, but then eventually became totally nontender to exam. CT scan and chest x-ray, both were read and negative. Blood cultu res showed no growth x2 and the urine culture grew out Gardnerella like bacteria. Her white count dr opped from 15.9 on day 1 to 13.02 on day 2. She again defervesced very quickly when she was afebrile for 24 plus hours, she was started on oral Augmentin. She remained afebrile through the rest of the day, discharged home late on day of hospital day 2. She will return in a week for followup in the [facility] and was instructed to call if her fever returns, pain returns or if she has any other concerns. Job ID: [id number]
== END 2022-06-10 13:25 | disposition home or self-care (01) | DRG 776 ==
LOC: ED 19:06 → 4E1 21:13 → INTOOBSV 21:13 → 4E1 22:09

== ENCOUNTER 2022-06-12 17:35 | Observation (INO) ==
[2022-06-12] MEDS ORDERED: SODIUM CHLORIDE 0.9% 1000ML 1,000 ML IV STA (18:00)
[2022-06-12] MEDS ORDERED: ONDANSETRON INJ 2 MG/ML 2 ML VIAL IV STA (18:01)
[2022-06-12] MEDS ORDERED: MoRPHine SULFATE 4 MG/ML 1 ML CARP\\VIAL IV STA (18:01)
--- NOTE | 2022-06-12 18:07 | Emergency Department Note ---
Impression & Plan Abdominal pain, Mastitis ADMIT ED Provider Note HPI: The patient is a 22-year-old female who is approximately 3 weeks , presents the emergency department after recent admission for endometritis with left breast pain and lower abdominal discomfort. Patient states her symptoms began just earlier today. Patient was discharged from the hospital 2 days ago after stay for endometritis for which she was treated with IV antibiotics. Patient states that since she was discharged, she was feeling okay and then developed this lower abdominal discomfort earlier today, patient states that the pain in her left breast has been ongoing since her delivery. On arrival here to the ED the patient was noted to be tachycardic and hypotensive. She was placed on residential monitor and IV fluid bolus was administered with quick improvement in her vital signs. She is otherwise alert and saturating well on room air on my initial assessment. ROS: -SCOOP MACHINE OPERATOR: Lower abdominal discomfort in the setting of status x3 weeks -Skin: Left breast tenderness/swelling *10 point review systems was conducted and is otherwise negative unless stated above *Outpatient medications and allergy history reviewed PE: General: Alert, NAD HEENT: Normocephalic, atraumatic Eyes: Extraocular eye movement is intact, no scleral erythema Pulmonary: Clear to auscultation bilaterally, no wheezing Cardio: Tachycardic rate and regular rhythm GI: Abdomen is soft, tenderness over the lower abdomen/suprapubic area : Moderate suprapubic tenderness MSK: No evidence of trauma or malformation of the extremities, no edema Skin: Wrist examination performed with female RN at the bedside, there is dry skin surrounding the left nipple without erythematous changes or purulent drain age, there is no asymmetrical swelling of the left breast in comparison to the right Neuro: Alert, no focal deficits Psychiatric: Cooperative residential monitor: - An order was placed for continuous cardiac monitoring - Patient was noted to be in sinus rhythm with a rate of 105 EKG: Rate: 82 Rhythm: Normal sinus rhythm Intervals: Within normal limits ST changes: No ST elevation Time: 1808 Medical Decision Making: Patient presented to the emergency department tachycardic with hypotension, this is in the setting of a recent admission for endometritis, she is approximately 3 weeks . After an unremarkable vaginal delivery. On arrival to the ED IV fluid bolus was administered, patient was given greater than 30 cc/kg of IV fluid. Her blood pressure did stabilize to 101/64 on my reassessment, she is no longer tachycardic, states she feels improved following IV morphine in regards to her lower abdominal pain. Patient's lab work does show evidence of leukocytosis therefore blood cultures were ordered. I discussed the patient's presentation with on-call SCOOP MACHINE OPERATOR as the patient was recently on their service as an inpatient just 2 days ago, spoke with Dr. Antonio, he evaluated the patient at the bedside. Given the patient's ongoing symptoms and leukocytosis as well as concern with lower abdominal pain for endometritis and concern for possible mastitis with her left breast swelling and pain, patient will be admitted to the service of Dr. Bates for further management. On my reassessment she is much more comfortable appearing, her vital signs are within normal limits, she is afebrile. Patient is in agreement for admission. She is admitted in stable condition, antibiotics will be deferred to the SCOOP MACHINE OPERATOR service. Diagnosis: 1. Lower abdominal pain, acute 2. Left-sided mastitis 3. Tachycardia, resolved 4. Leukocytosis 5. Hypotension, fluid responsive Disposition: ADMIT Mandeep Smith DO Emergency Medicine Past Med/Surg History Medical History (Updated 06/12/22 @ 21:03 by Mandeep Smith DO) Migraine without aura Surgical History (Updated 06/08/22 @ 23:23 by Isela Cartwright RN) [place] teeth extracted Family History Grandmother (Paternal) Pancreatic cancer Hypertension Unknown Afib Paternal great grandmother Unknown Acute leukemia Paternal Great Grandfather Denies family history of Ovarian cancer Prostate cancer Diabetes Heart disease Breast cancer Colorectal cancer Social History Smoking Status: Never smoker Second Hand Exposure: Yes; Hx Alcohol Use: No Hx Substance Use: No Preferred Language: Danish Communication Ability: Effective Hearing Ability: Normal Control Chemist Required: No Beliefs That Will Affect Care: None marital status: Single marital status details: RJ Katz (25) [phone] Current Living Situation: Parent and Family Current Living Situation Comment: parents current occupational status: unemployed How many Children do You have: 0 Feels Safe at Home: Yes caffeine: Yes Dental Care, Regularly: Yes Physical Activity Frequency: 3-4 Times per Week Seatbelt Use: always Sunscreen Use: Yes Assistive Devices: Glasses Allergies Allergies Allergy/AdvReac Type Severity Reaction Status Date / Time diphenhydramine AdvReac Intermediate makes her Verified 06/08/22 20:28 [From Benadryl] lungs tingle ibuprofen AdvReac Intermediate INTENSIFIES Verified 06/08/22 20:28 HEADACHES Home Meds Home Medications Medication Instructions Recorded Confirmed prenat.vits,fredrick,[id number] 1 tab PO QAM 11/12/21 06/08/22 acetaminophen 325 mg tablet 650 mg PO Q6H PRN Pain 06/08/22 06/08/22 sertraline 25 mg tablet 25 mg PO DAILY 06/08/22 06/08/22 Previous Rx's Medication Instructions Recorded amoxicillin 875 mg-potassium 1 tab PO BIDM #28 tabs 06/10/22 clavulanate 125 mg tablet Results & Data (ED) Vital Signs Vital Signs - 24 hr 06/12/22 17:45 06/12/22 18:10 06/12/22 18:11 Temperature 36.8 C Temperature Source Temporal Artery Scan Pulse Rate 137 H 87 Pulse Rate [Apical] 83 Pulse Rhythm Regular Pulse Rhythm [Apical] Regular Pulse Strength [Apical] Normal Respiratory Rate 16 20 20 Respiratory Effort / Characteristics Non-Labored Spontaneous Non-Labored Respiratory Depth Normal Normal Respiratory Pattern Regular Blood Pressure 76/49 L Blood Pressure [Left Arm] 107/55 L Blood Pressure Mean 58 Blood Pressure Mean [Left Arm] 72 Blood Pressure Position [Left Arm] Lying Pulse Oximetry 96 97 98 Oxygen Delivery Method Room Air Room Air Room Air Sepsis Recent Fever Within 48 Hours No Sepsis New/Unexplained Change in Mental Status N/A Sepsis Action Taken by Nursing No Action Required 06/12/22 19:03 06/12/22 19:03 06/12/22 19:36 Temperature 37 C Temperature Source Oral Pulse Rate Pulse Rate [Apical] 95 H 91 H Pulse Rhythm Pulse Rhythm [Apical] Pulse Strength [Apical] Respiratory Rate 18 18 Respiratory Effort / Characteristics Non-Labored Spontaneous Respiratory Depth Normal Respiratory Pattern Blood Pressure Blood Pressure [Left Arm] 109/65 103/68 Blood Pressure Mean Blood Pressure Mean [Left Arm] 79 79 Blood Pressure Position [Left Arm] Pulse Oximetry 98 98 Oxygen Delivery Method Room Air Room Air Sepsis Recent Fever Within 48 Hours Sepsis New/Unexplained Change in Mental Status Sepsis Action Taken by Nursing 06/12/22 20:22 06/12/22 20:35 Temperature Temperature Source Pulse Rate Pulse Rate [Apical] 88 88 Pulse Rhythm Pulse Rhythm [Apical] Pulse Strength [Apical] Respiratory Rate 18 18 Respiratory Effort / Characteristics Respiratory Depth Respiratory Pattern Blood Pressure Blood Pressure [Left Arm] 98/68 L 101/64 Blood Pressure Mean Blood Pressure Mean [Left Arm] 78 76 Blood Pressure Position [Left Arm] Pulse Oximetry 98 97 Oxygen Delivery Method Room Air Room Air Sepsis Recent Fever Within 48 Hours Sepsis New/Unexplained Change in Mental Status Sepsis Action Taken by Nursing Laboratory Data Result diagrams: 06/12/22 18:00 06/12/22 18:00 Lab Results 06/12/22 06/12/22 06/12/22 Range/Units 18:00 18:00 18:00 WBC 17.29 H (4.8-10.8) K/ul RBC 5.54 H (3.93-5.22) M/uL Hgb 16.4 H (12.0-16.0) g/dl Hct 48.1 H (34.1-44.9) % MCV 86.8 (80.0-100.0) fL MCH 29.6 (25.0-34.0) pg MCHC 34.1 (32.0-36.0) g/dL RDW Std Deviation 38.5 (36.4-46.3) fL RDW Coeff of Tomás 12.0 (11.5-14.5) % Plt Count 248 (130-400) K/uL MPV 9.4 (9.4-12.3) fL Immature Gran % (Auto) 0.8 % Neut % (Auto) 84.8 % Lymph % (Auto) 5.7 % Barton % (Auto) 8.4 % Eos % (Auto) 0.1 % Baso % (Auto) 0.2 % Neut # (Auto) 14.67 H (1.4-6.5) K/uL Lymph # (Auto) 0.98 L (1.2-3.4) K/uL Barton # (Auto) 1.46 H (0.24-0.82) K/uL Eos # (Auto) 0.01 (0-0.50) K/uL Baso # (Auto) 0.04 (0-0.2) K/uL Immature Gran # (Auto) 0.13 H (0.00-0.02) K/uL PT 11.1 (9.0-12.0) Seconds INR 1.0 (0.9-1.1) APTT 28.5 (21.0-31.0) Seconds PTT Ratio 1.0 Sodium 137 (136-145) mmol/L Potassium 3.2 L (3.5-5.1) mmol/L Chloride 102 (98-107) mmol/L Carbon Dioxide 24 (21-32) mmol/L Anion Gap 11 (3-11) BUN 11 (6-23) mg/dl Creatinine 0.89 (0.6-1.2) mg/dl Est Cr Clr Drug Dosing 98.7 ml/min Est GFR ( Amer) 108.1 ml/min Est GFR (Non-Af Amer) 93.3 ml/min BUN/Creatinine Ratio 12.4 (10-20) Glucose 98 (70-99(Fasting)) mg/dl Lactate (0.4-2.0) mmol/L Calcium 9.8 (8.5-10.1) mg/dl Total Bilirubin 1.0 (0.2-1.0) mg/dl AST 20 (13-39) U/L ALT 26 (7-52) U/L Alkaline Phosphatase 106 H (34-104) U/L Troponin I High Sens 5.1 (0-14) pg/ml Total Protein 7.4 (6.0-8.3) gm/dl Albumin 4.2 (3.4-5.0) gm/dl Globulin 3.2 (2.5-4.0) gm/dl Albumin/Globulin Ratio 1.3 (0.9-2) Lipase 10 L (11-82) U/L Urine Color Urine Appearance (Clear) Urine pH (4.5-7.5) Ur Specific [place] (1.000-1.030) Urine Protein (Negative) Urine Glucose (UA) (Negative) Urine Ketones (Negative) Urine Blood (Negative) Urine Nitrite (Negative) Urine Bilirubin (Negative) Urine Urobilinogen (Negative) Ur Leukocyte Esterase (Negative) Urine WBC (Auto) (0-5) /hpf Urine RBC (Auto) (0-4) /hpf U Hyaline Cast (Auto) U Epithel Cells (Auto) (0-5) /lpf Urine Bacteria (Auto) (Negative) Ur Renal Epithelial Cell SARS-CoV-2, RNA, NAAT (NEGATIVE) 06/12/22 06/12/22 06/12/22 Range/Units 18:07 18:31 19:00 WBC (4.8-10.8) K/ul RBC (3.93-5.22) M/uL Hgb (12.0-16.0) g/dl Hct (34.1-44.9) % MCV (80.0-100.0) fL MCH (25.0-34.0) pg MCHC (32.0-36.0) g/dL RDW Std Deviation (36.4-46.3) fL RDW Coeff of Tomás (11.5-14.5) % Plt Count (130-400) K/uL MPV (9.4-12.3) fL Immature Gran % (Auto) % Neut % (Auto) % Lymph % (Auto) % Barton % (Auto) % Eos % (Auto) % Baso % (Auto) % Neut # (Auto) (1.4-6.5) K/uL Lymph # (Auto) (1.2-3.4) K/uL [place] # (Auto) (0.24-0.82) K/uL Eos # (Auto) (0-0.50) K/uL Baso # (Auto) (0-0.2) K/uL Immature Gran # (Auto) (0.00-0.02) K/uL PT (9.0-12.0) Seconds INR (0.9-1.1) APTT (21.0-31.0) Seconds PTT Ratio Sodium (136-145) mmol/L Potassium (3.5-5.1) mmol/L Chloride (98-107) mmol/L Carbon Dioxide (21-32) mmol/L Anion Gap (3-11) BUN (6-23) mg/dl Creatinine (0.6-1.2) mg/dl Est Cr Clr Drug Dosing ml/min Est GFR ( Amer) ml/min Est GFR (Non-Af Amer) ml/min BUN/Creatinine Ratio (10-20) Glucose (70-99(Fasting)) mg/dl Lactate 1.0 (0.4-2.0) mmol/L Calcium (8.5-10.1) mg/dl Total Bilirubin (0.2-1.0) mg/dl AST (13-39) U/L ALT (7-52) U/L Alkaline Phosphatase (34-104) U/L Troponin I High Sens (0-14) pg/ml Total Protein (6.0-8.3) gm/dl Albumin (3.4-5.0) gm/dl Globulin (2.5-4.0) gm/dl Albumin/Globulin Ratio (0.9-2) Lipase (11-82) U/L Urine Color Yellow Urine Appearance Clear (Clear) Urine pH 5.0 (4.5-7.5) Ur Specific [place] 1.022 (1.000-1.030) Urine Protein Negative (Negative) Urine Glucose (UA) Negative (Negative) Urine Ketones Trace H (Negative) Urine Blood 3+ H (Negative) Urine Nitrite Negative (Negative) Urine Bilirubin Negative (Negative) Urine Urobilinogen Negative (Negative) Ur Leukocyte Esterase Trace H (Negative) Urine WBC (Auto) 10-30 H (0-5) /hpf Urine RBC (Auto) >30 H (0-4) /hpf U Hyaline Cast (Auto) Not Reportable U Epithel Cells (Auto) >30 H (0-5) /lpf Urine Bacteria (Auto) Negative (Negative) Ur Renal Epithelial Cell Not Reportable SARS-CoV-2, RNA, NAAT NEGATIVE (NEGATIVE) Administered Medications Discontinued Medications Sodium Chloride (Nss 1000ml) 1,000 mls @ 999 mls/hr IV .Q1H1M STA Stop: 06/12/22 19:00 Last Infusion: 06/12/22 18:49 Dose: 0 mls/hr Documented By: Admin: 06/12/22 18:12 Dose: 999 mls/hr Documented By: RSWyatt Sodium Chloride (Nss 1000ml) 1,000 mls @ 999 mls/hr IV .Q1H1M ONE Stop: 06/12/22 19:19 Last Infusion: 06/12/22 19:05 Dose: 0 mls/hr Documented By: Admin: 06/12/22 18:50 Dose: 999 mls/hr Documented By: SAFIA Morphine Sulfate (Morphine Sulfate 4 Mg/Ml 1 Ml Carp\Vial) 4 mg IV NOW STA Stop: 06/12/22 18:02 Last Admin: 06/12/22 18:17 Dose: 4 mg Documented By: SAFIA Morphine Sulfate (Morphine Sulfate 2 Mg/Ml Carp) 2 mg IV NOW STA Stop: 06/12/22 19:09 Last Admin: 06/12/22 19:10 Dose: 2 mg Documented By: OPAL Morphine Sulfate (Morphine Sulfate 2 Mg/Ml Carp) Confirm Administered Dose 2 mg .ROUTE .STK-MED ONE Stop: 06/12/22 19:10 Last Admin: 06/12/22 19:24 Dose: Not Given Documented By: OPAL Ondansetron HCl (Ondansetron Inj 2 Mg/Ml 2 Ml Vial) 4 mg IV NOW STA Stop: 06/12/22 18:02 Last Admin: 06/12/22 18:17 Dose: 4 mg Documented By: SAFIA Potassium Chloride (Potassium Chloride Crtab 20 Meq Tabcr) 40 meq PO NOW STA Stop: 06/12/22 19:25 Last Admin: 06/12/22 19:46 Dose: 40 meq Documented By: OPAL Imaging Data Radiologist's Impression: Chest X-Ray 06/12/22 18:00 SINGLE VIEW CHEST CLINICAL HISTORY: Atypical chest pain. Breast pain. FINDINGS: An AP, portable, upright chest radiograph is compared to study dated 06/08/2022 and correlated with chest CT dated 03/07/1940. The cardiomediastinal silhouette is unremarkable. The lungs and pleural spaces are clear. No pneumothorax is seen. The bony thorax is grossly intact. IMPRESSION: No active disease in the chest. ACT 112: Negative or not required by law. Electronically signed by: Angel oCrmier M.D. 06/12/2022 8:39 PM Breast Ultrasound 06/12/22 18:56 ULTRASOUND OF THE LEFT BREAST CLINICAL HISTORY: Pain and erythema. Clinical concern for abscess. COMPARISON STUDY: Chest CT dated 03/07/2022. FINDINGS: Real-time grayscale and color flow sonography of the left breast is performed to assess for abscess. Imaging of the left breast at the site of interest shows no fluid collection to indicate abscess. There is hyperemia in the regional soft tissues shown on color imaging. IMPRESSION: 1. Soft tissue hyperemia in the left breast is nonspecific and could be seen with cellulitis. Clinical correlation will be required. 2. There is no fluid collection identified to indicate abscess. 3. Note that this does not constitute a cancer screening examination. Dictated: 06/12/2022 7:54 PM Transcribed: 06/12/2022 8:21 PM Janeth [id number] [email or web address] Electronically signed by: Angel Cormier M.D. 06/12/2022 8:25 PM Discharge Plan Visit Data Chief Complaint: Breast Pain/Problems Stated Complaint: CHILLS, SOB, L BREAST PAIN, ABD PAIN ED Provider: Mandeep Smith Discharge Problem: Abdominal pain, Mastitis Patient Disposition: Admitted As Inpatient Condition: Good Forms Stand Alone Forms: [facility] Prescriptions Prescriptions: No Action prenat.vits,fredrick,[id number] Tablet 1 tab PO QAM sertraline 25 mg tablet 25 mg PO DAILY acetaminophen 325 mg tablet 650 mg PO Q6H PRN (Reason: Pain) amoxicillin-pot clavulanate 875-125 mg Tablet 1 tab PO BIDM Qty: 28 0RF Referrals Referrals: Sven Obrien PA-C [Primary Care Provider] -
[2022-06-12 18:17] LABS: Basophils # (auto) 0.04 K/uL (0-0.2); Basophils % (auto) 0.2 %; Eosinophils # (auto) 0.01 K/uL (0-0.50); Eosinophils % (auto) 0.1 %; Hematocrit (blood only) 48.1 % (34.1-44.9); Hemoglobin 16.4 g/dl (12.0-16.0); Immature Granulocytes # (auto) 0.13 K/uL (0.00-0.02); Immature Granulocytes % (auto) 0.8 %; Lymphocytes # (auto) 0.98 K/uL (1.2-3.4); Lymphocytes % (auto) 5.7 %; Mean Corpuscular Hemoglobin 29.6 pg (25.0-34.0); Mean Corpuscular Hgb Conc 34.1 g/dL (32.0-36.0); Mean Corpuscular Volume 86.8 fL (80.0-100.0); Mean Platelet Volume 9.4 fL (9.4-12.3); Monocytes # (auto) 1.46 K/uL (0.24-0.82); Monocytes % (auto) 8.4 %; Neutrophils # (auto) 14.67 K/uL (1.4-6.5); Neutrophils % (auto) 84.8 %; Platelet Count 248 K/uL (130-400); RDW Standard Deviation 38.5 fL (36.4-46.3); Red Blood Count 5.54 M/uL (3.93-5.22); White Blood Count 17.29 K/ul (4.8-10.8)
[2022-06-12] MEDS ORDERED: SODIUM CHLORIDE 0.9% 1000ML 1,000 ML IV ONE (18:19)
[2022-06-12 18:33] LABS: Partial Thromboplastin Time 28.5 Seconds (21.0-31.0); Prothrombin Time 11.1 Seconds (9.0-12.0)
[2022-06-12 18:37] LABS: Appearance Urine Clear (Clear); Bacteria Urine Automated Negative (Negative); Bilirubin Urine Negative (Negative); Blood Urine 3+ (Negative); Color Urine Yellow; Epithelial Cell Urine Auto >30 /lpf (0-5); Glucose Urine UA Negative (Negative); Ketones Urine Trace (Negative); Leukocyte Esterase Urine Trace (Negative); Nitrite Urine Negative (Negative); Protein Urine Negative (Negative); RBC Urine Automated >30 /hpf (0-4); Specific Gravity Urine 1.022 (1.000-1.030); Urobilinogen Urine Negative (Negative)
[2022-06-12 18:42] LABS: Albumin Globulin Ratio 1.3 (0.9-2); Albumin Level 4.2 gm/dl (3.4-5.0); BUN Creatinine Ratio 12.4 (10-20); Calcium 9.8 mg/dl (8.5-10.1); Creatinine Clr Calc Pharmacy 98.7 ml/min; Est GFR (African American) 108.1 ml/min; Est GFR (Non-African American) 93.3 ml/min; Globulin 3.2 gm/dl (2.5-4.0); Potassium 3.2 mmol/L (3.5-5.1); Total Protein 7.4 gm/dl (6.0-8.3)
[2022-06-12 18:43] LABS: Troponin I High Sensitivity 5.1 pg/ml (0-14)
[2022-06-12] MEDS ORDERED: ONDANSETRON INJ 2 MG/ML 2 ML VIAL IV PRN (19:03)
[2022-06-12] MEDS ORDERED: IBUPROFEN 600 MG TAB PO PRN (19:03)
[2022-06-12] MEDS ORDERED: MoRPHine SULFATE 2 MG/ML CARP IV STA (19:08)
[2022-06-12] MEDS ORDERED: MoRPHine SULFATE 2 MG/ML CARP ONE (19:09)
[2022-06-12] MEDS ORDERED: POTASSIUM CHLORIDE CRTAB 20 MEQ TABCR PO STA (19:24)
--- NOTE | 2022-06-12 20:26 | Ultrasound Report ---
ULTRASOUND OF THE LEFT BREAST CLINICAL HISTORY: Pain and erythema. Clinical concern for abscess. COMPARISON STUDY: Chest CT dated 03/07/2022. FINDINGS: Real-time grayscale and color flow sonography of the left breast is performed to assess for abscess. Imaging of the left breast at the site of interest shows no fluid collection to indicate ab scess. There is hyperemia in the regional soft tissues shown on color imaging. IMPRESSION: 1. Soft tissue hyperemia in the left breast is nonspecific and could be seen with cellulitis. Clinica l correlation will be required. 2. There is no fluid collection identified to indicate abscess. 3. Note that this does not constitute a cancer screening examination. Dictated: 06/12/2022 7:54 PM Transcribed: 06/12/2022 8:21 PM Janeth [id number] [facility] Electronically signed by: Angel Cormier M.D. 06/12/2022 8:25 PM
--- NOTE | 2022-06-12 20:41 | XRay Report ---
SINGLE VIEW CHEST CLINICAL HISTORY: Atypical chest pain. Breast pain. FINDINGS: An AP, portable, upright chest radiograph is compared to study dated 06/08/2022 and correlate d with chest CT dated 03/07/1942. The cardiomediastinal silhouette is unremarkable. The lungs and pleur al spaces are clear. No pneumothorax is seen. The bony thorax is grossly intact. IMPRESSION: No active disease in the chest. ACT 112: Negative or not required by law. Electronically signed by: Angel Cormier M.D. 06/12/2022 8:39 PM
[2022-06-12] MEDS ORDERED: SULFAMETHOXAZOLE/TRIMETHOPRIM DS 800/160MG TAB PO SCH (20:45)
--- NOTE | 2022-06-12 22:19 | History & Physical Report ---
Date of Service June 12, 2022 Assessment & Plan (1) Abdominal pain: (2) Mastitis: (3) endometritis: Plan Angela is a 22-year-old approximately 2 and half weeks status post uncomplicated vaginal delivery and was readmitted over the weekend for suspected endometritis. Patient presents the ED with new onset fevers breast pain and abdominal pain. Patient reports that the left breast tenderness has been progressively worsening is the most significant area of her tenderness and pain. The left breast is noted erythema and suspected cellulitis possible abscess. Patient underwent a breast ultrasound in the ED which showed findings consistent with breast cellulitis without abscess. Patient has moderate uterine tenderness was then range of expected with recent endometritis and recent delivery. I feel the patient's fevers, elevated white count and breast tenderness related to breast cellulitis. Uterine tenderness within range did not believe this is a recurrence of endometritis. However due to the recent admission for endometritis I will admit patient for observation and continue to evaluate for clinical response. Transition patient from Augmentin to Bactrim for broader spectrum coverage. This point patient has not had a recorded fever in the [facility] [place]. Will arrange for evaluation due to the difficulties. Admission and Anticipated Discharge Date Admission Date: June 12, 2022 History of Present Illness Primary Care Provider: Sven Obrien Angela is a 22-year-old approximately 2 have weeks status post uncomplicated vaginal delivery. Patient presents the ED with fevers, breast pain and pelvic pain. patient was readmitted for suspected endometritis this past weekend was treated with IV clinda and Gent and was discharged home on Augmentin. Patient reports that she has been taking Augmentin as prescribed. Patient reports fever starting this afternoon. She reports temp recorded of 102 at home. patient is reporting pelvic pain as well as significant left breast tenderness. Patient reports difficulty with pumping and breast-feeding from the left breast reports minimal expression of milk. She reports that pain has been progressively worsening at the left breast. She reporting Significant erythema and tenderness of the left breast. patient is denying any foul-smelling vaginal discharge. [place] [id number]. breast ultrasound notable for likely cellulitis of the left breast without noted abscess. Allergies Allergy/AdvReac Type Severity Reaction Status Date / Time diphenhydramine AdvReac Intermediate makes her Verified 06/12/22 21:34 [From Benadryl] lungs tingle ibuprofen AdvReac Intermediate INTENSIFIES Verified 06/12/22 21:34 HEADACHES Home Medications Medication Instructions Recorded Confirmed Type prenat.vits,fredrick,[id number] 1 tab PO QAM 11/12/21 06/12/22 History acetaminophen 325 mg tablet 650 mg PO Q6H PRN Pain 06/08/22 06/12/22 History sertraline 25 mg tablet 25 mg PO DAILY 06/08/22 06/12/22 History amoxicillin 875 mg-potassium 1 tab PO BIDM #28 tabs 06/10/22 06/12/22 Rx clavulanate 125 mg tablet Patient History Medical History (Updated 06/12/22 @ 21:03 by Mandeep Smith DO) Migraine without aura Surgical History (Updated 06/08/22 @ 23:23 by Isela Cartwright RN) [place] teeth extracted Family History Grandmother (Paternal) Pancreatic cancer Hypertension Unknown Afib Paternal great grandmother Unknown Acute leukemia Paternal Great Grandfather Denies family history of Ovarian cancer Prostate cancer Diabetes Heart disease Breast cancer Colorectal cancer Social History Smoking Status: Never smoker Second Hand Exposure: Yes; Hx Alcohol Use: No Hx Substance Use: No Preferred Language: Serbian Communication Ability: Effective Hearing Ability: Normal Career Agent Required: No Beliefs That Will Affect Care: None marital status: Single marital status details: RJ Katz (25) [phone] Current Living Situation: Parent and Family Current Living Situation Comment: parents current occupational status: unemployed How many Children do You have: 0 Feels Safe at Home: Yes caffeine: Yes Dental Care, Regularly: Yes Physical Activity Frequency: 3-4 Times per Week Seatbelt Use: always Sunscreen Use: Yes Assistive Devices: Glasses Physical Exam Gastrointestinal (Abdomen): Inspection/Auscultation: abdomen not distended Percussion/Palpation: + abdomen tender ( Moderate) and abdomen soft; no guarding and abdomen not rigid Genitourinary: no foul-smelling discharge noted. Uterine tenderness moderate. Results & Data ([facility]) Vital Signs (Past 12 Hours) Vital Signs Temp Pulse Pulse Resp BP BP Pulse Ox 06/12/22 21:30 98 H 18 100/57 L 97 06/12/22 20:35 88 18 101/64 97 06/12/22 20:22 88 18 98/68 L 98 06/12/22 19:36 91 H 18 103/68 98 06/12/22 19:03 37 C 06/12/22 19:03 95 H 18 109/65 98 06/12/22 18:11 87 20 98 06/12/22 18:10 83 20 107/55 L 97 06/12/22 17:45 36.8 C 137 H 16 76/49 L 96 O2 Del Method 06/12/22 21:30 Room Air 06/12/22 20:35 Room Air 06/12/22 20:22 Room Air 06/12/22 19:36 Room Air 06/12/22 19:03 06/12/22 19:03 Room Air 06/12/22 18:11 Room Air 06/12/22 18:10 Room Air 06/12/22 17:45 Room Air Coding Level of Care Code INT OBSERVATION CARE 50M LVL 2 Diagnoses Abdominal pain R10.30 Abdominal location: lower abdomen, unspecified Mastitis N61.0 endometritis O86.12 (1) Abdominal pain Abdominal location: lower abdomen, unspecified Qualified Code(s): R10.30 - Lower abdominal pain, unspecified
[2022-06-13] MEDS: ACETAMINOPHEN 325 MG TAB PO PRN ×3 (00:03→16:38)
[2022-06-13 06:45] LABS: Hematocrit (blood only) 39.8 % (34.1-44.9); Hemoglobin 13.3 g/dl (12.0-16.0); Mean Corpuscular Hemoglobin 29.4 pg (25.0-34.0); Mean Corpuscular Hgb Conc 33.4 g/dL (32.0-36.0); Mean Corpuscular Volume 88.1 fL (80.0-100.0); Mean Platelet Volume 9.4 fL (9.4-12.3); Platelet Count 208 K/uL (130-400); RDW Coefficient of Variation 12.3 % (11.5-14.5); RDW Standard Deviation 39.7 fL (36.4-46.3); Red Blood Count 4.52 M/uL (3.93-5.22)
--- NOTE | 2022-06-13 07:19 | Gynecologic Progress Note ---
Date of Service June 13, 2022 Assessment & Plan (1) Abdominal pain: (2) Mastitis: (3) endometritis: Plan HPI: Angela is a 22-year-old approximately 2 and half weeks status post uncomplicated vaginal delivery and was readmitted over the weekend for suspected endometritis. Patient presents the ED with new onset fevers breast pain and abdominal pain. Patient reports that the left breast tenderness has been progressively worsening is the most significant area of her tenderness and pain. -Continue Bactrim day 2. -Will have a evaluation today -Slight bump in WBC from last night (20 today, 17 last night). Will continue to trend -Vitals are stable though BP has been low, last BP was 91/56. Will continue to monitor -Will continue to monitor throughout the day and if doing well patient can be D/C later today. Admission and Anticipated Discharge Date Admission Date: June 12, 2022 Supervising Physician Co-Signing Physician Notes patient is seen evaluated with resident. Will have evaluate patient for left breast feeding concerns. Will continue monitor vitals. Patient rep orts symptomatic improvement. If otherwise stable will plan for discharge this afternoon. Subjective Patient feels better today. States that her L breast pain and the abdominal pain is getting better. She thinks that the ab pain got better after she passed gas. she has no other issues or complaints at this time. Review of Systems Review of Systems: Denies fever, chills, sweats Denies shortness of breath, difficulty breathing, chest pain, palpitations, chest pressure. Denies breast pain. Denies dysuria. Denies headache or changes in vision. Physical Exam Physical Exam: Constitutional: well-appearing, no acute distress HEENT: NCAT, no conjunctival injection CV: regular rhythm, no murmur appreciated, extremities well-perfused, no LE edema Resp: CTABL, no wheezes/rales/rhonchi appreciated, no increased work of breathing GI: soft, nondistended, nontender, BS normoactive MSK: no gross deformities appreciated Breast: improved tenderness on the L Neuro: alert, oriented, no focal neurologic deficit appreciated Results & Data ([facility] [place]) Vital Signs (Past 12 Hours) Vital Signs Temp Pulse Pulse Resp BP BP Pulse Ox 06/13/22 06:15 91/56 L 06/13/22 03:10 37.2 C 81 16 89/57 L 97 06/12/22 22:00 36.9 C 107 H 18 95/58 L 98 06/12/22 22:00 36.9 C 107 H 18 95/58 L 98 06/12/22 21:30 98 H 18 100/57 L 97 06/12/22 20:35 88 18 101/64 97 06/12/22 20:22 88 18 98/68 L 98 06/12/22 19:36 91 H 18 103/68 98 O2 Del Method 06/13/22 06:15 06/13/22 03:10 Room Air 06/12/22 22:00 Room Air 06/12/22 22:00 Room Air 06/12/22 21:30 Room Air 06/12/22 20:35 Room Air 06/12/22 20:22 Room Air 06/12/22 19:36 Room Air Resident Activity Tracking Resident Involvement: Resident Care Provided Care Provided: OB Delivery (1) Abdominal pain Abdominal location: lower abdomen, unspecified Qualified Code(s): R10.30 - Lower abdominal pain, unspecified
[2022-06-13] MEDS ORDERED: AMOXICILLIN/CLAVULANATE 875 MG TAB PO SCH (08:00)
[2022-06-13] MEDS ORDERED: SULFAMETHOXAZOLE/TRIMETHOPRIM DS 800/160MG TAB PO SCH (09:00)
--- NOTE | 2022-06-13 11:24 | Communication Note ---
Date of Service: June 13, 2022 Pt feeling much better than last evening. Denies any abd pain, thinks it was gas last night. Rates breast pain as 2/10 "tolerable" currently. Nursing did speak w/ pt regarding as is not here today. Will see how she does later today, pt does desire d/c so will re-eval this afternoon
--- NOTE | 2022-06-13 13:08 | Electrocardiogram Report ---
Test Reason : Blood Pressure : / mmHG Vent. Rate : 082 BPM Atrial Rate : 082 BPM P-R Int : 154 ms QRS Dur : 080 ms QT Int : 372 ms P-R-T Axes : 074 106 046 degrees QTc Int : 434 ms Normal sinus rhythm Possible Left atrial enlargement Rightward axis Borderline ECG When compared with ECG of 08-JUN-2022 21:49, No significant change was found Confirmed by Salas Pham ([id number]) on 06/13/2022 1:07:49 PM Referred By: REFERRED SELF Confirmed By:Salas Pham
--- NOTE | 2022-06-13 16:15 | Communication Note ---
Date of Service: June 13, 2022 Re-evaluated pt, she desires d/c. Still having some pain in that left breast but is much more tolerable than last evening, no fever while in hospital. Given clinical improvement, I think ok for d/c. Reviewed s/s to return for, pt verbalized understanding. Rx for bactrim BID x 10d sent, will have her f/u in office next week
--- NOTE | 2022-06-18 16:04 | Discharge Summary ---
Date of Service June 18, 2022 Admission HPI Per Admitting Provider Angela is a 22-year-old approximately 2 have weeks status post uncomplicated vaginal delivery. Patient presents the ED with fevers, breast pain and pelvic pain. patient was readmitted for suspected endometritis this past weekend was treated with IV clinda and Gent and was discharged home on Augmentin. Patient reports that she has been taking Augmentin as prescribed. Patient reports fever starting this afternoon. She reports temp recorded of 102 at home. patient is reporting pelvic pain as well as significant left breast tenderness. Patient reports difficulty with pumping and breast-feeding from the left breast reports minimal expression of milk. She reports that pain has been progressively worsening at the left breast. She reporting Significant erythema and tenderness of the left breast. patient is denying any foul-smelling vaginal discharge. [place] [id number]. breast ultrasound notable for likely cellulitis of the left breast without noted absces s. Discharge Data Consultations 06/12/22 20:31 ED Decision to Admit Stat Hospital Course (1) Abdominal pain: (2) Mastitis: (3) endometritis: Plan Pt was admitted and started on bactrim. She clinically noted improvement on obs day 1, remained afebrile during course. She was then discharged home on a course of bactrim with plan for 1 wk f/u Coding Level of Care Code 04570 OBS Care - Discharge Diagnoses Abdominal pain R10.30 Abdominal location: lower abdomen, unspecified Mastitis N61.0 endometritis O86.12
== END 2022-06-13 16:52 | disposition home or self-care (01) ==
LOC: 4E1 17:35 → ED 17:35 → 4E1 21:30

== ENCOUNTER 2023-07-19 19:48 | Inpatient (IN) ==
[2023-07-19] MEDS ORDERED: LIDOCAINE 1% LOCAL 20 ML VIAL INFIL PRN (20:50)
[2023-07-19] MEDS ORDERED: LACTATED RINGER'S 1,000 ML IV PRN (20:50)
[2023-07-19] MEDS ORDERED: PENICILLIN G POTASSIUM 6 MU in DEXTROSE 5% 250 ML IV STA (20:53)
--- NOTE | 2023-07-19 21:00 | History & Physical Report ---
Date of Service July 19, 2023 Assessment & Plan (1) premature rupture of membranes: Plan: 23 yo at 36 wga admitted w/ pprom -VSS -Fetus cat 1 -PPROM confirmed. s/p betamethasone at 33 wks, rescue course not indicated due to GA. Peds made aware -[place] [facility] [place] negative GBS swab but do not have the result scanned in, will start pcn prophylactically and request record and can stop once confirmed. peds made aware -Desires to try to go unmedicated History of Present Illness Chief Complaint: LOF Primary Care Provider: Sven Obrien 23 yo at 36 wga w/ LISA 08/16 by US presents w/ c/o LOF since 7pm. had large gush and leaking since then. +FM; denies VB. Intermittent ctx PNI: PTL, s/p BMZ 07/01-07/02 Short int preg Past [employer] Hx: G1 2021 G2 current q28-30d cycles denies hx STIs Allergies Allergy/AdvReac Type Severity Reaction Status Date / Time diphenhydramine AdvReac Intermediate makes her Verified 07/16/23 14:05 [From Benadryl] lungs tingle ibuprofen AdvReac Intermediate INTENSIFIES Verified 07/16/23 14:05 HEADACHES Home Medications Medication Instructions Recorded Confirmed Type prenat.vits,fredrick,[id number] 1 tab PO QAM 11/12/21 07/19/23 History Patient History Medical History (Updated 07/19/23 @ 20:58 by Gaby Washington MD) Active labor Migraine without aura endometritis Varicella vaccination Surgical History [place] teeth extracted Family History Grandmother (Paternal) Pancreatic cancer Hypertension Unknown Afib Paternal great grandmother Unknown Acute leukemia Paternal Great Grandfather Denies family history of Ovarian cancer Prostate cancer Diabetes Heart disease Breast cancer Colorectal cancer Social History Smoking Status: Never smoker Second Hand Exposure: Yes; Do You Dip or Chew Tobacco: No; Hx Alcohol Use: No Hx Substance Use: No Preferred Language: Wolof Communication Ability: Effective Hearing Ability: Normal [employer] Mechanical Required: No Beliefs That Will Affect Care: None marital status: Single marital status details: RJ Katz (26) [phone] Current Living Situation: Parent, Family and Significant Other Current Living Situation Comment: lives with fob, daughter, 2 dogs current occupational status: unemployed How many Children do You have: 0 Other Information That Helps Us Care for You: No Feels Safe at Home: Yes caffeine: Yes Dental Care, Regularly: Yes Physical Activity Frequency: 3-4 Times per Week Seatbelt Use: always Sunscreen Use: Yes Assistive Devices: Glasses Physical Exam Genitourinary: OB Exam Abdomen: + vertex (confirmed by bsus) Manual OB Exam: + cervical dilation 4 cm, + cervical effacement 90%, + station -2 and + amniotic fluid (+nitrazine, pooling, ferning. Forebag palpated) OB Exam Monitor Tracing: + external FHT monitor used, + external uterine monitor used (q3-4) and + category I (145/mod/+accel/-decel) Results & Data Vital Signs (Past 12 Hours) Vital Signs Temp Pulse Resp BP 07/19/23 20:04 97.9 F 110 H 18 111/67 07/19/23 20:01 110 H 111/67 Laboratory Results OB Labs: Blood Type O Positive 02/16/23 Antibody Screen NEGATIVE 03/11/23 Hemoglobin 11.7 g/dl (12.0-16.0) L 05/27/23 Hematocrit 34.1 % (37.0-47.0) L 05/27/23 Mean Corpuscular Volume 85.3 fL (80.0-100.0) 02/16/23 Platelet Count 226 K/uL (130-400) 02/16/23 Rubella IgG Antibody Immune (Immune) 03/11/23 Rapid Plasma Reagin Nonreactive (Nonreactive) 03/11/23 Hepatitis B Surface Antigen Neg (Neg) 11/16/21 Hepatitis B Surface Antigen. NON-REACTIVE (NON-REACTIVE) 03/11/23 Hepatitis C Antibody Neg (Neg) 11/16/21 Hepatitis C Antibody (EIA) NON-REACTIVE (NON-REACTIVE) 03/11/23 HIV (1&2) Ab and P24 Ag, 4th Gener Neg (Neg) 11/16/21 HIV (1&2) Ag and Ab Confirmation NON-REACTIVE (NON-REACTIVE) 03/11/23 Glucose 1 Hour 50 gm Load 99 mg/dl (70-130) 05/27/23 OB Optional Labs: Chlamydia trachomatis RNA Not Detected (NotDetected) 03/11/23 Neisseria gonorrhoeae RNA Not Detected (NotDetected) 03/11/23 Diagnostic Findings 07/02 EFW 16%, ant plac Coding Level of Care Code None Diagnoses premature rupture of membranes O42.919
[2023-07-19 21:50] LABS: Hematocrit (blood only) 31.5 % (37.0-47.0); Hemoglobin 10.6 g/dl (12.0-16.0); Mean Corpuscular Hemoglobin 27.9 pg (25.0-34.0); Mean Corpuscular Hgb Conc 33.7 g/dL (32.0-36.0); Mean Corpuscular Volume 82.9 fL (80.0-100.0); Mean Platelet Volume 10.5 fL (9.4-12.4); Platelet Count 192 K/uL (130-400); RDW Coefficient of Variation 13.2 % (11.5-14.5); RDW Standard Deviation 39.7 fL (36.4-46.3); White Blood Count 13.13 K/ul (4.8-10.8)
[2023-07-19] MEDS ORDERED: ePHEDrine sulfate 50 MG/ML AMP ONE (22:06)
[2023-07-19] MEDS ORDERED: SODIUM CHLORIDE 0.9% PF INJ 10 ML VIAL ONE (22:06)
[2023-07-19] MEDS ORDERED: fentaNYL citrate PF 100 MCG/2 ML VIAL ONE (22:06)
[2023-07-19] MEDS ORDERED: LIDOCAINE 2%/EPINEPHRINE 1:200,000 20 ML PF ONE (22:07)
[2023-07-19] MEDS ORDERED: fentaNYL 2MCG/ML ROPIVACAINE 1.25MG/ML 100 ML BAG EPI ONE (22:07)
[2023-07-19] MEDS ORDERED: BUPIVACAINE 0.25% PF 30 ML VIAL ONE (22:07)
[2023-07-19] MEDS ORDERED: ONDANSETRON INJ 2 MG/ML 2 ML VIAL IV PRN (22:10)
[2023-07-19] MEDS ORDERED: fentaNYL 2MCG/ML ROPIVACAINE 1.25MG/ML 100 ML BAG EPI PRN (22:10)
[2023-07-19] MEDS ORDERED: LIDOCAINE 2%/EPINEPHRINE 1:200,000 20 ML PF EPI STA (22:10)
[2023-07-19] MEDS ORDERED: SODIUM CHLORIDE 0.9% PF INJ 10 ML VIAL EPI PRN (22:10)
[2023-07-19] MEDS ORDERED: BUPIVACAINE 0.25% PF 30 ML VIAL EPI PRN (22:10)
[2023-07-19] MEDS ORDERED: NALBUPHINE HCL INJ 10 MG/ML AMP IV PRN (22:10)
[2023-07-19] MEDS ORDERED: fentaNYL citrate PF 100 MCG/2 ML VIAL EPI STA (22:10)
[2023-07-19] MEDS ORDERED: BUPIVACAINE 0.25% PF 30 ML VIAL EPI STA (22:10)
[2023-07-19] MEDS ORDERED: ePHEDrine sulfate 50 MG/ML AMP IV PRN (22:10)
[2023-07-19] MEDS ORDERED: NALOXONE HCL 1 MG in SODIUM CHLORIDE 0.9% 1,000 ML IV PRN (22:10)
[2023-07-19] MEDS ORDERED: ROPIVACAINE 0.5% PF 5 MG/ML 20 ML VIAL EPI PRN (22:10)
[2023-07-19] MEDS ORDERED: SODIUM CHLORIDE 0.9% PF INJ 10 ML VIAL EPI STA (22:10)
[2023-07-19] MEDS ORDERED: diphenhydrAMINE 50 MG/ML VIAL IV PRN (22:10)
[2023-07-19] MEDS ORDERED: NALOXONE HCL 0.4 MG/1 ML VIAL/CARP IV PRN (22:10)
[2023-07-19] MEDS ORDERED: LIDOCAINE 2% MPF LOCAL 5 ML VIAL EPI PRN (22:10)
[2023-07-19] MEDS ORDERED: fentaNYL citrate PF 100 MCG/2 ML VIAL EPI PRN (22:10)
--- NOTE | 2023-07-19 22:12 | Anesthesiology Consultation ---
Date of Service July 19, 2023 Assessment & Plan (1) Encounter for pre-operative examination: Chart Review Chart Review: Patient NOT seen in Pre Admission Testing and Acceptable Risk for Labor Epidural Consults Requested none History Height/Weight Height: 5 ft 8 in Weight: 69.127 kg Allergies Allergy/AdvReac Type Severity Reaction Status Date / Time diphenhydramine AdvReac Intermediate makes her Verified 07/16/23 14:05 [From Benadryl] lungs tingle ibuprofen AdvReac Intermediate INTENSIFIES Verified 07/16/23 14:05 HEADACHES Medications Home Medications Medication Instructions Recorded Confirmed Last Taken prenat.vits,fredrick,[id number] 1 tab PO QAM 11/12/21 07/19/23 07/19/23 09:00 Active Medications Generic Name Dose Route Start Last Admin Trade Name Freq PRN Reason Stop Dose Admin Lactated Ringer's 1,000 mls @ 125 mls/hr 07/19/23 20:50 07/19/23 21:57 Lr IV 07/21/23 20:49 125 mls/hr .Q8H PRN Administration L&D Protocol Protocol Past Medical History Medical History (Updated 07/19/23 @ 22:12 by Sven Dong MD) Active labor Encounter for pre-operative examination Migraine without aura endometritis Varicella vaccination Exercise / Class Metabolic Activity II 4-5 Yardwork/Stairs/Walk up hill Past Family History Family History Grandmother (Paternal) Pancreatic cancer Hypertension Unknown Afib Paternal great grandmother Unknown Acute leukemia Paternal Great Grandfather Denies family history of Ovarian cancer Prostate cancer Diabetes Heart disease Breast cancer Colorectal cancer Past Surgical History Surgical History [place] teeth extracted Past Anesthesia History No Hx of Anesthesia Complications and No Family Hx of Anesthesia Complications Social History Smoking Status: Never smoker Do You Dip or Chew Tobacco: No Hx Alcohol Use: No Hx Substance Use: No substance use type: does not use Physical Exam Vital Signs Last Vital Signs Temp 36.5 C 07/19/23 21:53 Pulse 117 H 07/19/23 22:29 Resp 18 07/19/23 21:53 BP 135/88 07/19/23 22:29 Pulse Ox 97 07/19/23 22:26 Testing Laboratory Results 07/19/23 21:12
[2023-07-19] MEDS: OXYTOCIN 30 UNITS/500 ML BAG IV PRN (23:46)
[2023-07-19] MEDS ORDERED: PENICILLIN G POTASSIUM 3 MU in DEXTROSE 5% 100 ML IV PRN (23:50)
--- NOTE | 2023-07-19 23:56 | Delivery Summary ---
Vaginal Delivery Summary Date of Service July 19, 2023 Vaginal Delivery Summary [facility] PREOPERATIVE DIAGNOSIS: 1. Single intrauterine at 36 wga 2. PPROM 3. History of PTL 4. Short interval POSTOPERATIVE DIAGNOSIS: 1. Single intrauterine at 36 wga 2. PPROM 3. History of PTL 4. Short interval 5. Delivered PROCEDURE: 1. Normal spontaneous vaginal delivery. SURGEON: Gaby Washington MD ANESTHESIA: Epidural. ESTIMATED BLOOD LOSS: 300 mL FLUIDS: Continuous LR. URINE OUTPUT: None. COMPLICATIONS: None. CONDITION: Stable. INDICATIONS: 23 yo at 36 wga presented w/ c/o LOF since 6pm. PPROM was confirmed with +nitrazine, pooling, ferning. Of note she had been transferred to [place] for PTL at 33 6/7 wga and GBS was negative at that time so penicillin not indicated. She had also already received a course of steroids for lung maturity during that transfer so rescue course is not indicated. She underwent rupture of forebag and continued to progress. She received an epidural for pain control and progressed spontaneously to complete and desired to push FINDINGS: A viable female , weight pending with Apgars of 8 and 9 at 1 and 5 minutes respectively. SPECIMEN: Cord blood OPERATIVE REPORT: The patient progressed to 10 cm, 100% effaced and +2 station, pushed over intact perineum with anesthesia to deliver a viable female , weight and Apgars as above. Head of delivered in PINA position. No nuchal cord was present. Body and shoulders were delivered without difficulty. was delivered to maternal abdomen and nursing staff. Delayed cord clamping was performed for 60 seconds. Cord was clamped and cut. Cord blood was obtained. Placenta delivered spontaneously intact with 3-vessel cord. IV oxytocin and fundal massage were given for excellent hemostasis. Vagina, cervix, perineum, and placenta were inspected. No lacerations were noted. Sponge and needle counts correct x2. No sponges were left behind. Mother and stable in immediate period. [facility] [place] Vaginal Delivery Charge Vaginal Delivery Codes: 44258 global code for the antepartum, delivery, and post- Delivery Type Details: [facility]
[2023-07-20] MEDS: OXYTOCIN 30 UNITS/500 ML BAG IV PRN (00:31)
[2023-07-20] MEDS ORDERED: BENZOCAINE 20% SPRY 85 APPLN/85 GM CAN EXT PRN (01:30)
[2023-07-20] MEDS ORDERED: OXYTOCIN 30 UNITS/500 ML BAG IV PRN (01:30)
[2023-07-20] MEDS ORDERED: DIPHTHERIA/TETANUS/PERTUSSIS Vaccine (Tdap, Age 7+yrs) 0.5mL SYR/VL IM ONE (01:30)
[2023-07-20] MEDS ORDERED: IBUPROFEN 600 MG TAB PO PRN (01:30)
[2023-07-20] MEDS ORDERED: HYDROCORTISONE ACETATE 25 MG SUPP PR PRN (01:30)
--- NOTE | 2023-07-20 03:09 | Anesthesia Procedure Note ---
Date of Service July 20, 2023 Anesthesia Post Epidural Note Vital Signs Vital Signs: Temp Pulse Resp BP Pulse Ox O2 Del Method 36.4 C L 73 16 107/66 98 Room Air 07/20/23 02:30 07/20/23 02:30 07/20/23 02:30 07/20/23 02:30 07/20/23 00:52 07/20/23 02:30 Pain Intensity Lower Abdomen: Pain Intensity: 8 Notes Mental Status: alert / awake / arousable and participated in evaluation Patient Amnestic to Procedure: No Nausea / Vomiting: adequately controlled Pain: adequately controlled Airway Patency, RR, SpO2: stable & adequate BP & HR: stable & adequate Hydration State: stable & adequate Neuraxial Anesthesia: was administered and sensory block resolved Anesthetic Complications: no major complications apparent and Pt Satisfied with anesthetic care Epidural: Removed without complications and With tip intact
[2023-07-20] MEDS: ACETAMINOPHEN 325 MG TAB PO PRN ×2 (03:28→20:27)
--- NOTE | 2023-07-20 07:49 | Obstetrical Progress Note ---
Date of Service July 20, 2023 Assessment & Plan (1) Encounter for care and examination after delivery: 23 yo PP1 from , doing well -Meeting all pp milestones -O+/rubella immune/ -f/u 6 weeks for appt, continue rout pp care Subjective Ambulation: ambulating normally Voiding: no voiding problems Passing Gas:: Yes Diet Tolerance:: regular diet Lochia:: Small Feeding Type:: breast feeding Pain well managed with medication Review of Systems Denies fevers, chills, n/v, [place], CP, SOB Physical Exam Constitutional WD/WN, vitals as above no acute distress Respiratory normal respiratory effort, lungs clear to auscultation Cardiovascular RRR, no murmur, no edema Gastrointestinal (Abdomen) Percussion/Palpation: abdomen soft; abdomen nontender fundus firm at umbilicus and NT Musculoskeletal BLE symmetric, nonerythematous, nontender Results & Data Vital Signs (Past 12 Hours) Vital Signs Temp Pulse Pulse Resp BP BP Pulse Ox 07/20/23 02:30 97.5 F L 73 16 107/66 07/19/23 20:04 97.9 F 110 H 18 111/67 07/20/23 01:50 18 07/20/23 01:50 98.4 F 18 07/20/23 01:49 74 108/61 07/20/23 01:34 81 104/57 L 07/20/23 01:19 73 109/59 L 07/20/23 00:52 76 98 07/20/23 00:49 80 99/58 L 07/20/23 00:47 77 97 07/20/23 00:42 96 H 96 07/20/23 00:37 80 98 07/20/23 00:34 85 106/54 L 07/20/23 00:32 81 97 07/20/23 00:27 89 97 07/20/23 00:22 89 97 07/20/23 00:19 87 109/59 L 07/20/23 00:17 86 97 07/20/23 00:12 85 97 07/20/23 00:07 85 96 07/20/23 00:04 88 108/56 L 07/20/23 00:02 93 H 97 07/19/23 23:57 97 07/19/23 23:57 93 H 07/19/23 23:52 97 07/19/23 23:52 94 H 07/19/23 23:49 91 H 07/19/23 23:49 108/71 07/19/23 23:47 97 07/19/23 23:47 89 07/19/23 23:42 98 07/19/23 23:42 105 H 07/19/23 23:37 98 07/19/23 23:37 121 H 07/19/23 23:35 97 H 07/19/23 23:35 126/86 07/19/23 23:32 99 07/19/23 23:32 100 H 07/19/23 23:27 99 07/19/23 23:27 104 H 07/19/23 23:22 99 07/19/23 23:22 84 07/19/23 23:19 88 07/19/23 23:19 121/70 07/19/23 23:17 96 07/19/23 23:17 101 H 07/19/23 23:15 94 07/19/23 23:15 109 H 07/19/23 23:12 97 07/19/23 23:12 107 H 07/19/23 23:07 98 07/19/23 23:07 107 H 07/19/23 23:04 84 07/19/23 23:04 132/62 07/19/23 23:03 93 07/19/23 23:03 107 H 07/19/23 23:02 96 07/19/23 23:02 108 H 07/19/23 22:57 98 07/19/23 22:57 84 07/19/23 22:52 97 07/19/23 22:52 87 07/19/23 22:48 96 H 07/19/23 22:48 139/61 07/19/23 22:47 99 07/19/23 22:47 91 H 07/19/23 22:46 110 H 07/19/23 22:46 150/65 H 07/19/23 22:44 110 H 07/19/23 22:44 136/62 07/19/23 22:42 108 H 07/19/23 22:42 137/68 07/19/23 22:41 98 07/19/23 22:41 83 07/19/23 22:40 104 H 07/19/23 22:40 135/62 07/19/23 22:38 110 H 07/19/23 22:38 135/68 07/19/23 22:36 100 07/19/23 22:36 91 H 07/19/23 22:36 131/67 07/19/23 22:35 93 H 07/19/23 22:35 132/79 07/19/23 22:32 87 07/19/23 22:32 123/57 L 07/19/23 22:31 100 07/19/23 22:31 115 H 07/19/23 22:29 117 H 07/19/23 22:29 135/88 07/19/23 22:26 97 07/19/23 22:26 106 H 07/19/23 22:21 100 07/19/23 22:21 105 H 07/19/23 22:16 99 07/19/23 22:16 124 H 07/19/23 22:11 100 07/19/23 22:11 101 H 07/19/23 21:53 18 07/19/23 21:53 97.7 F 18 07/19/23 20:01 110 H 111/67 O2 Del Method 07/20/23 02:30 Room Air 07/19/23 20:04 07/20/23 01:50 07/20/23 01:50 07/20/23 01:49 07/20/23 01:34 07/20/23 01:19 07/20/23 00:52 07/20/23 00:49 07/20/23 00:47 07/20/23 00:42 07/20/23 00:37 07/20/23 00:34 07/20/23 00:32 07/20/23 00:27 07/20/23 00:22 07/20/23 00:19 07/20/23 00:17 07/20/23 00:12 07/20/23 00:07 07/20/23 00:04 07/20/23 00:02 07/19/23 23:57 07/19/23 23:57 07/19/23 23:52 07/19/23 23:52 07/19/23 23:49 07/19/23 23:49 07/19/23 23:47 07/19/23 23:47 07/19/23 23:42 07/19/23 23:42 07/19/23 23:37 07/19/23 23:37 07/19/23 23:35 07/19/23 23:35 07/19/23 23:32 07/19/23 23:32 07/19/23 23:27 07/19/23 23:27 07/19/23 23:22 07/19/23 23:22 07/19/23 23:19 07/19/23 23:19 07/19/23 23:17 07/19/23 23:17 07/19/23 23:15 07/19/23 23:15 07/19/23 23:12 07/19/23 23:12 07/19/23 23:07 07/19/23 23:07 07/19/23 23:04 07/19/23 23:04 07/19/23 23:03 07/19/23 23:03 07/19/23 23:02 07/19/23 23:02 07/19/23 22:57 07/19/23 22:57 07/19/23 22:52 07/19/23 22:52 07/19/23 22:48 07/19/23 22:48 07/19/23 22:47 07/19/23 22:47 07/19/23 22:46 07/19/23 22:46 07/19/23 22:44 07/19/23 22:44 07/19/23 22:42 07/19/23 22:42 07/19/23 22:41 07/19/23 22:41 07/19/23 22:40 07/19/23 22:40 07/19/23 22:38 07/19/23 22:38 07/19/23 22:36 07/19/23 22:36 07/19/23 22:36 07/19/23 22:35 07/19/23 22:35 07/19/23 22:32 07/19/23 22:32 07/19/23 22:31 07/19/23 22:31 07/19/23 22:29 07/19/23 22:29 07/19/23 22:26 07/19/23 22:26 07/19/23 22:21 07/19/23 22:21 07/19/23 22:16 07/19/23 22:16 07/19/23 22:11 07/19/23 22:11 07/19/23 21:53 07/19/23 21:53 07/19/23 20:01
[2023-07-20] MEDS: FERROUS SULFATE 325 MG TAB PO SCH (08:57)
[2023-07-20] MEDS: DOCUSATE SODIUM 100 MG CAP PO SCH ×2 (08:57→20:17)
[2023-07-20] MEDS: PRENATAL VITAMIN 1 TAB PO SCH (08:57)
[2023-07-20] MEDS ORDERED: bisacodyL 5 MG TABEC PO SCH (20:00)
--- NOTE | 2023-07-20 20:34 | Obstetrical Progress Note ---
Date of Service <Anmol Garcia MD - Last Filed: 07/21/23 07:28> July 20, 2023 Assessment & Plan <Anmol Garcia MD - Last Filed: 07/21/23 07:28> (1) Spontaneous vaginal delivery: Plan 23 yo , day 3, status post of girl on 07/19/23, no LACS - Pt doing well clinically. Feels well today. Eating well, voiding well, ambulating well. Pain well controlled with PRN pain meds. - Routine care -- OOB, ambulation, diet progression as tolerated Vital Signs reviewed and WNL. (Tmax at 36.7) BP 106/54 (07/20/23: 0:34) Hemoglobin Reviewed. 10.6 (07/19/23). Blood Type: O+, GBS-, Rubella Immune. Encourage ambulation, monitor and control pain with Motrin PRN, resume regular diet, monitor lochia. Breast feeding encouraged. After discharge will have 6 week follow-up with Dr. Washington. Pt counselled on discharge instructions. <Gaby Washington MD - Last Filed: 07/21/23 07:31> (1) Spontaneous vaginal delivery: Subjective <Anmol Garcia MD - Last Filed: 07/21/23 07:28> Ambulation: ambulating normally Voiding: no voiding problems Passing Gas:: Yes Diet Tolerance:: regular diet (appetite is not quite back to normal) Lochia:: Small Feeding Type:: breast feeding (and formula feeding) Current Pain Level(1-10): 3 (cramping in lower abdomen) Constitutional: no fever or no chills Respiratory: no cough or no dyspnea Cardiovascular: no chest pain or no palpitations Breast: no breast pain Musculoskeletal: no myalgia Physical Exam <Anmol Garcia MD - Last Filed: 07/21/23 07:28> Constitutional WD/WN, vitals as above Respiratory normal respiratory effort, lungs clear to auscultation Cardiovascular RRR, no murmur, no edema Gastrointestinal (Abdomen) normal bowel sounds, soft, nontender, no hepatosplenomegaly fundal height below umbilical area Musculoskeletal Extremities: extremities normal to inspection (no calf pain or tenderness) Results & Data <Anmol Garcia MD - Last Filed: 07/21/23 07:28> Vital Signs (Past 12 Hours) Vital Signs Temp Pulse Resp BP Pulse Ox O2 Del Method 07/20/23 15:58 36.5 C 77 16 101/66 07/20/23 12:05 36.3 C L 76 16 110/72 98 Room Air 07/20/23 08:45 36.4 C L 37 L 16 105/65 96 Room Air <Gaby Washington MD - Last Filed: 07/21/23 07:31> Co-Signing Physician Notes Resident Physician Supervision Note: I interviewed and examined the patient. Discussed with Dr. Garcia and agree with findings and plan as documented in the note. Any exceptions or clarifications are listed here: PP2 s/p , doing well. VSS, exambenign and wnl. Stable for dc home Documented By: Gaby Washington MD
[2023-07-21] MEDS ORDERED: bisacodyL 10 MG SUPP PR PRN (01:30)
[2023-07-21] MEDS: ACETAMINOPHEN 325 MG TAB PO PRN (04:53)
[2023-07-21] MEDS: FERROUS SULFATE 325 MG TAB PO SCH (07:57)
[2023-07-21] MEDS: PRENATAL VITAMIN 1 TAB PO SCH (07:57)
[2023-07-21] MEDS: DOCUSATE SODIUM 100 MG CAP PO SCH (07:57)
== END 2023-07-21 12:25 | disposition home or self-care (01) | DRG 807 ==
LOC: OPB 19:48 → 4S1 19:50 → 4E2 07-20 02:20